=== PATIENT | male | born 1955 | race Caucasian/White ===

== ENCOUNTER 2019-10-10 11:48 | Inpatient (IN) | payer MEDICARE, OTHER ==
[~2019-10-10] VITALS: Ht 182.9 cm; Wt 78.0 kg
[2019-10-10] MEDS ORDERED: SODIUM CHLORIDE 0.9% 1000ML 1,000 ML IV STA (11:53)
[2019-10-10] MEDS ORDERED: PIPERACILLIN/TAZO 2.25 GM 50 ML IV SCH (12:00)
[2019-10-10] MEDS ORDERED: ALBUTEROL/IPRATROPIUM 3 ML NEB NEB ONE (12:00)
[2019-10-10 12:26] LABS: BASOPHILS # (AUTO) 0.1 (0.0-0.1); BASOPHILS % 0.9 % (0.0-1.0); EOSINOPHILS # (AUTO) 0.2 (0.0-0.4); EOSINOPHILS % 3.4 % (0.0-6.0); HEMATOCRIT 38.8 % (38.2-49.6); HEMOGLOBIN 12.6 g/dL (14.0-18.0); LYMPHOCYTES # (AUTO) 1.2 (1.0-3.2); MEAN CORPUSCULAR HEMOGLOBIN 27.2 pg (28-32); MEAN CORPUSCULAR HGB CONC 32.5 g/dL (31-35); MEAN CORPUSCULAR VOLUME 83.8 fL (81-99); MONOCYTES # (AUTO) 0.5 (0.2-0.8); MONOCYTES % 7.4 % (4.4-11.3); NEUTROPHILS # (AUTO) 4.4 (2.1-6.9); PLATELET COUNT 354 x10e3/uL (140-360); RED BLOOD COUNT 4.63 x10e6/uL (4.3-5.7); RED CELL DISTRIBUTION WIDTH 15.8 % (11.7-14.4)
[2019-10-10] MEDS ORDERED: ASPIRIN 81 MG CHEW TAB PO ONE (12:30)
[2019-10-10] MEDS ORDERED: LEVOFLOXACIN 750MG/D5W 150ML 150 ML IV SCH (12:30)
[2019-10-10 12:37] LABS: ABG HCO3 25 mmol/L (23-28); ABG PCO2 31 mmHg (41-51); ABG PH 7.52 (7.31-7.41); ABG PO2 102 mmHg (80-105)
[2019-10-10 12:55] LABS: ALANINE AMINOTRANSFERASE 27 IU/L (0-55); ALBUMIN 3.9 g/dL (3.5-5.0); ALBUMIN/GLOBULIN RATIO 1.2 (0.8-2.0); ALKALINE PHOSPHATASE 92 IU/L (40-150); BLOOD UREA NITROGEN 12 mg/dL (7-26); BUN/CREATININE RATIO 11 (6-25); CALCIUM 9.9 mg/dL (8.4-10.2); CARBON DIOXIDE 27 mmol/L (22-29); CHLORIDE 101 mmol/L (98-107); CREATINE KINASE 80 IU/L (30-200); EST GLOMERULAR FILTRATION RATE > 60 ML/MIN (60-); GLUCOSE 113 mg/dL (74-118); SODIUM 140 mmol/L (136-145)
[2019-10-10 13:01] LABS: B-TYPE NATRIURETIC PEPTIDE2 30.9 pg/mL (0-100)
--- NOTE | 2019-10-10 14:17 | Diagnostic Imaging Report ---
EXAMINATION: CHEST 2 VIEWS INDICATION: SOB. COMPARISON: None FINDINGS: TUBES and LINES: None. LUNGS: Lungs are well inflated. There is a possible nodular opacity overlying the right upper lung, but is obscured by overlying EKG leads. Emphysematous changes of lungs with linear subsegmental atelectasis versus scarring in the lower lung zones. No evidence of lobar consolidation. PLEURA: Possible trace right pleural effusion. Possible pleural thickening along the right lower lateral lung. HEART AND MEDIASTINUM: The cardiomediastinal silhouette is unremarkable. Hiatal hernia. BONES AND SOFT TISSUES: No acute osseous lesion. Soft tissues are unremarkable. UPPER ABDOMEN: No free air under the diaphragm. IMPRESSION: Emphysematous lungs without evidence of acute radiographic abnormality. Possible nodular opacity in the right upper lung, obscured by overlying EKG leads. Recommend repeat chest radiograph upon removal of right upper EKG lead. Possible trace right pleural effusion. Possible right basilar pleural thickening Signed by: Dr. Cheryl Delacruz MD on 10/10/2019 2:13 PM
[2019-10-10] MEDS: MORPHINE SULFATE INJ 4 MG/ML INJ 1ML IV PRN ×2 (16:05→21:34)
--- NOTE | 2019-10-10 19:15 | NUR ---
Pt taken to Radiology then will be taken to 202 after 2V CXR, report called to receiving nurse.
[2019-10-10 19:33] VITALS: BP 115/78
--- NOTE | 2019-10-10 19:49 | Diagnostic Imaging Report ---
EXAMINATION: CHEST 2 VIEWS INDICATION: Short of breath, nodule on prior x-ray, EKG markers removed COMPARISON: chest x-ray 10/10/2019 FINDINGS: TUBES and LINES: None. LUNGS: Hyperinflated lungs with flattened hemidiaphragms. Prominent reticular lung markings throughout the lungs. A 1.2 cm nodular opacity in the mid right upper lung. Prominent central pulmonary vasculature. Subsegmental atelectasis/scarring in the left lung base. PLEURA: No pleural effusion or pneumothorax. HEART AND MEDIASTINUM: The cardiomediastinal silhouette is unremarkable. BONES AND SOFT TISSUES: No acute osseous lesion. Soft tissues are unremarkable. Degenerative changes in the spine. UPPER ABDOMEN: No free air under the diaphragm. IMPRESSION: An indeterminate 1.2 cm nodular opacity in the right upper lung. Recommend nonemergent chest CT for further evaluation. Findings of chronic lung disease. Pulmonary vascular congestion. Signed by: David Moore DO on 10/10/2019 7:45 PM
[2019-10-10] MEDS ORDERED: ROSUVASTATIN CA10 MG PO (20:24)
[2019-10-10] MEDS ORDERED: DULOXETINE HCL30 MG PO (20:24)
[2019-10-10] MEDS ORDERED: ACETAMINOPHEN-1 EAC4 PO (20:24)
[2019-10-10] MEDS ORDERED: GABAPENTIN300 MG PO (20:24)
[2019-10-10] MEDS ORDERED: DOXAZOSIN MESYLA8 MG PO (20:24)
[2019-10-10] MEDS ORDERED: FENOFIBRATE48 MG PO (20:24)
[2019-10-10] MEDS ORDERED: DIAZEPAM10 MG PO (20:24)
[2019-10-10] MEDS ORDERED: DOXAZOSIN MESYLATE 8 MG PO SCH (20:45)
[2019-10-10] MEDS: DOXAZOSIN MESYLATE 2 MG TAB PO SCH (21:00)
[2019-10-10] MEDS: IBUPROFEN 200 MG TAB PO SCH (22:00)
[2019-10-11] VITALS (8 sets, daily range): BP systolic 90–130; BP diastolic 62–81
[2019-10-11] MEDS: MORPHINE SULFATE INJ 4 MG/ML INJ 1ML IV PRN ×4 (03:30→21:32)
[2019-10-11] MEDS: IBUPROFEN 200 MG TAB PO SCH ×2 (05:58→08:20)
[2019-10-11] MEDS ORDERED: OXCARBAZEPINE600 MG PO (08:33)
--- NOTE | 2019-10-11 08:35 | NUR ---
Patient stated he used to take Oxcarbazepine 600mg 3 tabs at home as ordered by his nerve Doctor, Notified Dr Persaud , new order recvd to continue that medication
[2019-10-11] MEDS ORDERED: OXCARBAZEPINE 300 MG TAB PO SCH (09:30)
[2019-10-11] MEDS ORDERED: NON-FORMULARY MEDICATION (Acetaminophen With Codeine (Acetaminophen-Cod #4 Tablet) 1 TAB) PO PRN (11:45)
[2019-10-11] MEDS ORDERED: NON-FORMULARY MEDICATION (Diazepam 10 MG) PO PRN (11:45)
[2019-10-11] MEDS: ACETAMINOPHEN/CODEINE 300MG - 30MG TAB PO PRN (12:10)
[2019-10-11] MEDS: GABAPENTIN 300 MG CAP PO SCH ×2 (15:18→21:31)
[2019-10-11] MEDS: DOXAZOSIN MESYLATE 2 MG TAB PO SCH ×2 (15:18→16:56)
--- NOTE | 2019-10-11 18:16 | Consultation ---
DATE OF CONSULTATION: 10/11/2019 Pulmonary Medicine Consult REASON FOR REFERRAL: Abnormal chest radiography. HISTORY OF PRESENT ILLNESS: Mr. Bertrand is a pleasant 63-year-old gentleman with abnormal chest radiography. The patient is well known to me from outpatient encounters. The patient had a 3.5 roughly cm lung mass, that seem to be increasing in size on serial chest radiography. Furthermore, the patient had two other subcentimeter lung nodules in distant areas, that were not clearly associated with the original process. The patient underwent transthoracic needle biopsy by Radiology in early August. The patient was diagnosed with granulomatous disease, however, the patient had a pneumothorax. Due to the large size pneumothorax, the patient underwent VATS with repair with wedge of the rest of the lesion; these cultures are still being incubated, but once again not suggestive of malignancy. The patient had an MRI brain, that was negative for malignancy and PET-CT did not show any other light up in the body except for this low-level at the main right upper lobe lesion. Plan was to have incubation of cultures for better isolation of whatever actual cause is going on, but in the interim, the patient was having some flushing. The patient with mild fatigue as well. He comes to the emergency room. Chest x-ray demonstrates atelectasis versus pneumonitis, and trace right pleural effusion with no evidence of pneumothorax on right hemithorax. He was admitted and I am consulted. PAST MEDICAL HISTORY: COPD, chronic hypoxemia, on home oxygen, and anxiety. MEDICATIONS: Medication list reviewed per the chart record. ALLERGIES: NO KNOWN DRUG ALLERGIES. SOCIAL HISTORY: No alcohol. No drugs. The patient is a long-time smoker, but recently quit about 1 year ago. FAMILY HISTORY: Noncontributory. REVIEW OF SYSTEMS: GENERAL: No weight changes. OPHTHALMOLOGIC: No double vision. ENT: No mouth ulcers. ENDOCRINE: No thyroid disease. PULMONARY: No asthma. CARDIAC: No heart attack. GI: No diarrhea. : No blood in urine. NEUROLOGIC: No seizures. PSYCHIATRIC: Some active anxiety recently. MUSCULOSKELETAL: Mild arthritis. PHYSICAL EXAMINATION: VITAL SIGNS: Afebrile, vital signs are stable and reviewed per the chart record. GENERAL: In no acute distress, alert, and calm. HEENT: Normocephalic, atraumatic. NECK: Supple. Throat midline. LUNGS: Bilateral air entry, decreased, few rhonchi. CARDIOVASCULAR: S1, S2. No murmurs, rubs, or gallops. ABDOMEN: Soft, nontender. EXTREMITIES: No clubbing, no cyanosis, no edema. INTEGUMENT: No rash. No purpura. LABORATORY DATA: 12 BUN, 1.1 creatinine. 6.4 white count, 39 hematocrit, and 254 platelets. LFTs unremarkable. I believe he had outside HIV test, which was negative. IMPRESSION AND PLAN: 1. Mild exacerbation of chronic obstructive pulmonary disease. 2. Known granulomatous disease, under investigation on the outside. 3. Bronchitis, acute. 4. Chronic hypoxemia, on home oxygen. 5. History of anxiety. Continue current treatment plan. We will follow along closely. I will get outside records. Continue bronchodilator therapy . Thank you very much, Dr. Granados and Dr. Persaud for allowing me a chance to participate in the care of Mr. Bertrand. Please call for questions. MD ASHLEE Amanda/MODL /[id number]
[2019-10-11] MEDS ORDERED: SYMBICORT 16010.2 GM INH (18:19)
[2019-10-11] MEDS ORDERED: PROAIR HFA INH8.5 GM INH (18:19)
[2019-10-11] MEDS ORDERED: SPIRIVA18 MCG INH (18:19)
[2019-10-11] MEDS ORDERED: NABUMETONE750 MG (18:19)
[2019-10-11] MEDS ORDERED: ALBUTEROL SULFATE HFA 8GM INHALATION AEROSOL INH PRN (18:30)
[2019-10-11] MEDS: DULOXETINE HCL 30 MG DELAYED RELEASE PO SCH (18:45)
--- NOTE | 2019-10-11 20:00 | NUR ---
pt received. pt assessed. no ss of distress noted. o2 nc noted. no co pain at time. will cont to follow poc. call horton within reach.
[2019-10-11] MEDS ORDERED: DOXAZOSIN MESYLATE 8 MG PO SCH (21:00)
[2019-10-11] MEDS ORDERED: NON-FORMULARY MEDICATION (Rosuvastatin Calcium 10 MG) PO SCH (21:00)
[2019-10-11] MEDS: CRESTOR 10MG PO SCH (21:31)
[2019-10-11] MEDS: FENOFIBRATE 48 MG TAB PO SCH (21:31)
[2019-10-11] MEDS: AZITHROMYCIN 500MG/NS 250 ML 250 ML IV SCH (22:40)
[2019-10-12] VITALS (7 sets, daily range): BP systolic 100–114; BP diastolic 64–68
[2019-10-12] MEDS: DIAZEPAM 5 MG TAB PO PRN ×2 (00:47→23:42)
--- NOTE | 2019-10-12 04:00 | NUR ---
pt resting. no ss of distress noted. call horton within reach.
[2019-10-12] MEDS: OXCARBAZEPINE 300 MG TAB PO SCH (06:12)
[2019-10-12] MEDS: ACETAMINOPHEN/CODEINE 300MG - 30MG TAB PO PRN (06:12)
--- NOTE | 2019-10-12 07:10 | NUR ---
pt alert resp even and unlabored pt able to make needs known, no c/o pain no distress noted, call light in reach.
[2019-10-12] MEDS: BUDESONIDE/FORMOTEROL 160/4.5MCG INHALER INH SCH (07:59)
[2019-10-12] MEDS: TIOTROPIUM 18 MCG INH POWDER INH SCH (07:59)
[2019-10-12] MEDS: DULOXETINE HCL 30 MG DELAYED RELEASE PO SCH (09:17)
[2019-10-12] MEDS: GABAPENTIN 300 MG CAP PO SCH ×2 (09:17→21:16)
[2019-10-12] MEDS: DOXAZOSIN MESYLATE 2 MG TAB PO SCH ×2 (09:17→16:40)
--- NOTE | 2019-10-12 11:52 | History and Physical ---
Mr. Crane is a pleasant 63-year-old man with known lung disease, who presented to the emergency room on the with a complaint of shortness of breath. HISTORY OF PRESENT ILLNESS: The patient was recently discharged from [facility] after a complex hospitalization and felt that he was doing okay, but got suddenly short of breath over the weekend. PAST MEDICAL HISTORY: Significant for a hospitalization at [facility] apparently in August 2019, with a needle biopsy of a pulmonary mass in his right lung, that resulting tension pneumothorax, chest tube placement, and complex management. He has had previous pneumonia vaccine and flu vaccine. No previous hospitalizations before noted above. PERSONAL AND SOCIAL HISTORY: The patient smoked until March 2019. 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 HOME MEDICATIONS: Please see the chart. PHYSICAL EXAMINATION: GENERAL: At this time, shows a pleasant white male, looks older than his stated age. Normotensive. VITAL SIGNS: Afebrile, blood pressure 125/75, and pulse 90 and regular. HEAD, EYES, EARS, NOSE, AND THROAT: Unremarkable except for the nasal cannula oxygen. THORAX: Heart sounds S1 and S2 are equal without significant murmur. LUNGS: Have distant breath sounds. No distinct wheezing. ABDOMEN: Protuberant. Normal bowel sounds. EXTREMITIES: No cyanosis, clubbing, or edema. EKG shows sinus rhythm, normal EKG. INITIAL LABORATORY STUDIES: Show white count of 6.3, hemoglobin 12.6. BUN 12, creatinine 1.1, glucose 113. Initial chest x-ray shows emphysematous changes and flattening of the diaphragms. ASSESSMENT: 1. Exacerbation of chronic obstructive pulmonary disease. 2. Home dependent oxygen. 3. Trigeminal neuralgia with chronic pain in his right face over the past 10 years. PLAN: We will continue his neurological medications, antibiotics, and bronchodilators. We will consult with Dr. Etienne. We will review old records when available. MD MAGDALENA Williamson/TI /[id number]
--- NOTE | 2019-10-12 19:24 | NUR ---
report given to oncoming nurse, pt stable at this time.
--- NOTE | 2019-10-12 20:56 | NUR ---
Pulmonary Medicine DATE 10/12/2019 SUBJECTIVE: Remains on oxygen No excess dyspnea today Patient eating some d/w patient updated results of biopsy/cultures from his lung procedures AFB cultures negative x 3 weeks so far with his symptoms yet no alternative therapy, will begin mycobacterial therapy. REVIEW OF SYSTEMS: no bleeding, no rash PHYSICAL EXAMINATION: VITAL SIGNS: vital signs are stable and reviewed per the chart record. GENERAL: no acute distress, alert, and calm. HEENT: Normocephalic, atraumatic. NECK: Supple. Throat midline. LUNGS: Bilateral air entry, decreased, few rhonchi. CARDIOVASCULAR: S1, S2. No murmurs, rubs, or gallops. ABDOMEN: Soft, nontender. EXTREMITIES: No clubbing, no cyanosis, no edema. INTEGUMENT: No rash. No purpura. LABORATORY DATA: no new updates IMPRESSION AND PLAN: 1. Mild exacerbation of chronic obstructive pulmonary disease. 2. Known granulomatous disease, under investigation on the outside. Rx as culture negative mycobacterial disease 3. Bronchitis, acute. 4. Chronic hypoxemia, on home oxygen. 5. History of anxiety. Continue bronchodilator therapy continue oxygen continue abx at discharge patient can go on RIPE therapy while awaiting rest of microbiologic findings Thank you very much, Dr. Granados and Dr. Persaud for allowing me a chance to participate in the care of Mr. Bertrand. Please call for questions.
--- NOTE | 2019-10-12 21:05 | NUR ---
patient in bed, awake alert oriented. complained of pain to right shoulder. needs pain med PRN. will give meds scheduled and PRN pain med. will continue to monitor.
[2019-10-12] MEDS ORDERED: ETHAMBUTOL HCL400 MG PO (21:15)
[2019-10-12] MEDS ORDERED: RIFAMPIN300 MG PO (21:15)
[2019-10-12] MEDS ORDERED: ISONIAZID300 MG PO (21:15)
[2019-10-12] MEDS ORDERED: PYRAZINAMIDE500 MG PO (21:15)
[2019-10-12] MEDS ORDERED: VITAMIN B-650 MG PO (21:15)
[2019-10-12] MEDS: AZITHROMYCIN 500MG/NS 250 ML 250 ML IV SCH (21:16)
[2019-10-12] MEDS: FENOFIBRATE 48 MG TAB PO SCH (21:16)
[2019-10-12] MEDS: CRESTOR 10MG PO SCH (21:16)
[2019-10-12] MEDS: MORPHINE SULFATE INJ 4 MG/ML INJ 1ML IV PRN (21:16)
--- NOTE | 2019-10-12 23:42 | NUR ---
patient requested Valium PRN, vitals checked, bp at this time is 129/72. will continue to monitor.
[2019-10-13 00:15] VITALS: BP 129/72
[2019-10-13 05:10] LABS: BASOPHILS % 0.6 % (0.0-1.0); EOSINOPHILS # (AUTO) 0.7 (0.0-0.4); EOSINOPHILS % 10.2 % (0.0-6.0); HEMATOCRIT 34.8 % (38.2-49.6); HEMOGLOBIN 11.4 g/dL (14.0-18.0); LYMPHOCYTES % 28.8 % (18.0-39.1); MEAN CORPUSCULAR HEMOGLOBIN 27.5 pg (28-32); MEAN CORPUSCULAR HGB CONC 32.8 g/dL (31-35); MEAN CORPUSCULAR VOLUME 83.9 fL (81-99); MONOCYTES # (AUTO) 0.6 (0.2-0.8); MONOCYTES % 8.7 % (4.4-11.3); NEUTROPHILS # (AUTO) 3.5 (2.1-6.9); NEUTROPHILS % 51.4 % (38.7-80.0); PLATELET COUNT 300 x10e3/uL (140-360); RED BLOOD COUNT 4.15 x10e6/uL (4.3-5.7); RED CELL DISTRIBUTION WIDTH 15.6 % (11.7-14.4)
[2019-10-13] MEDS: ACETAMINOPHEN/CODEINE 300MG - 30MG TAB PO PRN ×2 (05:25→10:14)
[2019-10-13] MEDS: OXCARBAZEPINE 300 MG TAB PO SCH (05:25)
[2019-10-13 05:38] LABS: ANION GAP 11.5 mmol/L (8-16); BLOOD UREA NITROGEN 12 mg/dL (7-26); BUN/CREATININE RATIO 14 (6-25); CALCIUM 9.1 mg/dL (8.4-10.2); CARBON DIOXIDE 27 mmol/L (22-29); CHLORIDE 103 mmol/L (98-107); CHOL/HDL RATIO 6.1 (3.9-4.7); CHOLESTEROL 251 MD/DL (0-199); CREATININE, SERUM 0.87 mg/dL (0.72-1.25); EST GLOMERULAR FILTRATION RATE > 60 ML/MIN (60-); GLUCOSE 97 mg/dL (74-118); HDL CHOLESTEROL 41 MG/DL (40-60); LDL CHOLESTEROL 183 MG/DL (60-130); POTASSIUM 3.5 mmol/L (3.5-5.1); SODIUM 138 mmol/L (136-145); TRIGLYCERIDES 137 MG/DL (0-149)
[2019-10-13 06:33] VITALS: BP 105/63
[2019-10-13] MEDS: BUDESONIDE/FORMOTEROL 160/4.5MCG INHALER INH SCH (06:57)
[2019-10-13] MEDS: TIOTROPIUM 18 MCG INH POWDER INH SCH (06:57)
--- NOTE | 2019-10-13 07:09 | NUR ---
bed side reports given to upcoming nurse. patient stable.
[2019-10-13 07:42] VITALS: BP 105/63
[2019-10-13 07:47] VITALS: BP 119/62
[2019-10-13] MEDS: DOXAZOSIN MESYLATE 2 MG TAB PO SCH (09:03)
[2019-10-13] MEDS: GABAPENTIN 300 MG CAP PO SCH (09:04)
[2019-10-13] MEDS: DULOXETINE HCL 30 MG DELAYED RELEASE PO SCH (09:04)
[2019-10-13 10:40] VITALS: BP 119/62
--- NOTE | 2019-10-13 11:32 | NUR ---
Spoke to Gladis Bright, robotic machine operator, regarding TB intake from on chart from Dr. Etienne. Informed her of discharge for today. She will come up to pickling tank operator form.
[2019-10-13 11:55] VITALS: BP 100/66
--- NOTE | 2019-10-13 13:00 | NUR ---
Pulmonary Medicine DATE 10/13/2019 SUBJECTIVE: Remains on oxygen Stable breathing sitting up, mostly independent REVIEW OF SYSTEMS: no bleeding, no rash PHYSICAL EXAMINATION: VITAL SIGNS: vital signs reviewed per the chart record. GENERAL: no acute distress, alert, and calm. HEENT: Normocephalic, atraumatic. NECK: Supple. Throat midline. LUNGS: Bilateral air entry, decreased, few rhonchi. CARDIOVASCULAR: S1, S2. No murmurs, rubs, or gallops. ABDOMEN: Soft, nontender. EXTREMITIES: No clubbing, no cyanosis, no edema. INTEGUMENT: No rash. No purpura. LABORATORY DATA: k low 3.5. cr 0.87. 7 wbc, hct 35 IMPRESSION AND PLAN: 1. Mild exacerbation of chronic obstructive pulmonary disease. 2. Known granulomatous disease, under investigation on the outside. Rx as culture negative mycobacterial disease 3. Bronchitis, acute. 4. Chronic hypoxemia, on home oxygen. 5. History of anxiety. Start RIPE therapy empirically. [facility] paperwork filled. Patient can go home today from a pulmonary point of view-- patient follows closely and not difficult to contact. after discharge patient can await rest of microbiologic findings Continue bronchodilator therapy continue oxygen continue abx Thank you very much, Dr. Granados and Dr. Persaud for allowing me a chance to participate in the care of Mr. Craen. Please call for questions.
--- NOTE | 2019-10-13 15:34 | NUR ---
Patient was given instructions for follow up by MD at bedside. Packet given to Infection control nurse who communicated with the [place] dept and faxed everything to them. patient left after d/c instuctions given to patient. Scripts were left with the packet , and just now faxed to [facility] [place] [facility]. @ [phone]. Patient called and informed of the scripts faxed to [facility]
--- NOTE | 2019-10-14 04:41 | Discharge Summary ---
Mr. Crane is a pleasant 63-year-old man with known lung disease, who presented to the emergency room on the with complaint of worsening shortness of breath. HOSPITAL COURSE: The patient was treated with broad-spectrum antibiotics and bronchodilators and seen in consultation with dr. Etienne, who has known him from previous hospitalizations. He uses home oxygen became gradually better. There was difficulty finding previous hospital records, as his name was misspelled. Once corrected, we were able to find that biopsy done at [facility] in August showed only granuloma. No evidence of malignancy, at which time he had pneumothorax and a chest tube. Today, the patient is afebrile, breathing well. His lab today shows white count of 6.8 and hemoglobin of 11.4. His echocardiogram additionally showed normal LV function with no valvular abnormality and no pericardial effusion. He is discharged today to begin a regimen as an outpatient of ethambutol 1200 mg daily, isoniazid 300 mg daily, pyrazinamide 2000 mg daily, pyridoxine 25 mg daily, and rifampin 600 mg daily. He will follow up with Dr. Etienne in his office for further management. DISCHARGE DIAGNOSES: 1. Exacerbation of chronic obstructive pulmonary disease. 2. Granuloma on biopsy. 3. No evidence of malignancy. MD MAGDALENA Williamson/TI /[id number] cc: DO Alvin Lui MD
--- OUTSIDE RECORDS SUMMARY | 2019-10-15 12:22 | XMS REPORT ---
[facility] Address Unknown Phone Unavailable Care Team Providers Care Territory Service Representative Name Role Phone Snow OWENS Unavailable Unavailable Payers Payer Name Policy Type Policy Number Effective Date Expiration Date Problems This patient has no known problems. Allergies, Adverse Reactions, Alerts Allergy Name Allergy Type Status Severity Reaction(s) Onset Date Inactive Date Treating Clinician Comments No Known Allergies DA Active U 2019-09-08 00:00:00 Medications This patient has no known medications. Encounters Start Date/Time End Date/Time Encounter Type Admission Type Attending Clinicians Care Facility Care Department Encounter ID 2019-08-03 11:20:53 Outpatient [facility]500 2019-08-25 10:55:00 2019-08-25 10:55:00 Outpatient [facility] 7501 Results Test Description Test Time Test Comments Text Results Atomic Results Result Comments CHEST 2 VIEWS 2019-10-10 19:33:00 [facility] [address] [address] Patient Name: ALIS CHUN MR #: [id number] : 1955 Age/Sex: 63/M Req #: [id number] Adm Physician: JOANN OWENS MD Ordered by: SAMMY SMITH MD Report #: [id number] Location: MED/SURG2 Room/Bed: [facility] Procedure: [id number] DX/CHEST 2 VIEWS Exam Date: 10/10/19 Exam Time: 1914 REPORT STATUS: Signed EXAMINATION: CHEST 2 VIEWS INDICATION: Short of breath, nodule on prior x-ray, EKG markers removed COMPARISON: chest x-ray 10/10/2019 FINDINGS: TUBES and LINES: None. LUNGS: Hyperinflated lungs with flattened hemidiaphragms. Prominent reticular lung markings throughout the lungs. A 1.2 cm nodular opacity in the mid right upper lung. Prominent central pulmonary vasculature. Subsegmental atelectasis/scarring in the left lung base. PLEURA: No pleural effusion or pneumothorax. HEART AND MEDIASTINUM: The cardiomediastinal silhouette is unremarkable. BONES AND SOFT TISSUES: No acute osseous lesion. Soft tissues are unremarkable. Degenerative changes in the spine. UPPER ABDOMEN: No free air under the diaphragm. IMPRESSION: An indeterminate 1.2 cm nodular opacity in the right upper lung. Recommend nonemergent chest CT for further evaluation. Findings of chronic lung disease. Pulmonary vascular congestion. Signed by: David Suggs DO on 10/10/20 7:45 PM Dictated By: DAVID SUGGS DO 44 Transcribed By: VANNESSA on 10/10/191944 COPY TO: SAMMY SMITH MD CHEST 2 VIEWS 2019-10-10 14:09:00 [address] [address] Patient Name: ALIS CHUN MR #: [id number] : 1955 Age/Sex: 63/M Req #: [id number] Adm Physician: Ordered by: ZACARIAS LAZO DO Report #: [id number] Location: ER Room/Bed: Procedure: [id number] DX/CHEST 2 VIEWS Exam Date: 10/10/19 Exam Time: 1338 REPORT STATUS: Signed EXAMINATION: CHEST 2 VIEWS INDICATION: SOB. COMPARISON: None FINDINGS: TUBES and LINES: None. LUNGS: Lungs are well inflated. There is a possible nodular opacity overlying the right upper lung, but is obscured by overlying EKG leads. Emphysematous changes of lungs with linear subsegmental atelectasis versus scarring in the lower lung zones. No evidence of lobar consolidation. PLEURA: Possible trace right pleural effusion. Possible pleural thickening along the right lower lateral lung. HEART AND MEDIASTINUM: The cardiomediastinal silhouette is unremarkable. Hiatal hernia. BONES AND SOFT TISSUES: No acute osseous lesion. Soft tissues are unremarkable. UPPER ABDOMEN: No free air under the diaphragm. IMPRESSION: Emphysematous lungs without evidence of acute radiographic abnormality. Possible nodular opacity in the right upper lung, obscured by overlying EKG leads. Recommend repeat chest radiograph upon removal of right upper EKG lead. Possible trace right pleural effusion. Possible right basilar pleural thickening Signed by: Dr. Olu Anton MD on 10/10/2019 2:13 PM Dictated By: OLU ANTON MD 1413 Transcribed By: VANNESSA on 10/10/19 1413 COPY TO: ZACARIAS LAZO DO LUNG,WEDGE BIOPSY 2019-09-27 18:22:00 RUN DATE: 09/27/19 [facility] PAGE 1 RUN TIME: 1822 Specimen Inquiry RUN USER: INTERFACE PATIENT: ALIS PITT LOC: BONNY #: [id number] AGE/SX: 63/M ROOM: [facility] RE09/10/19REG DR: Buddy Mcdonald MD : 55 BED: A DIS: 09/22/19 STATUS: DIS IN TLOC: SPEC #: [id number] RECD: 09/20/19 STATUS: ANJUM SANIYA #: [id number] LULA: 09/17/19- SUBM DR: Roxane Hu MD ENTERED: 09/20/19 SP TYPE: BXLUNGWED JESSICA DR: Long Gallegos MD, Remington Pek HanleyRoxane Puentes MD, George M MD Qureshi,Tennille Black MD, MD,Jaspal Cruz [facility]: GROSS COPIES TO: Long Gallegos MD [address] [place] [address] Kleber Paulino Hanley DO [address] [place] [address] Roxane Hu MD [address], [place] [id number] Alvin Etienne MD [address] [facility] [address] [place] [phone] Cain Cobian MD [address] [facility] [address] [place], [place] [id number] Tennille Escobar MD [address] [facility] [place] [address] Jaspal Granados DO [address] [id number] CONTINUED ON NEXT PAGE RUN DATE: 09/27/19 [facility] PAGE 2 RUN TIME: 1821 Specimen Inquiry RUN USER: INTERFACE --------SPEC #: [id number] PATIENT: SWEETIEALIS LOZANO #[id number] (Continued) MARKERS: INTRADEPARTMENTAL CONSULT PROCEDURES: SEE (09/27/19-0177) TISSUES: 1. RIGHT UPPER LOBE OF LUNG, NOS - WEDGE (PERFORATION MARKED IN BLUE ) 2. RIGHT UPPER LOBE OF LUNG, NOS - WEDGE (SILK STITCH AT GRANULATION) CLINICAL HISTORY COLLECTION DATE: 09/17/19 RIGHT LUNG MASS COMMENT Necrotizing granuloma formation was seen in the recent biopsy ([id number]). However, no areas of necrotizing granuloma formation are seen in the current biopsy. Clinical correlation is recommended. Intradepartmental consultation: RRB FINAL DIAGNOSIS Right upper lobe of lung, wedge biopsy #1: SUBPLEURAL FIBROUS AND BLEB FORMATION, FOREIGN BODY GIANT CELL REACTION TO CALCIFICATIONS AND FOCAL HEMORRHAGE CHRONIC PLEURITIS NO NECROTIZING GRANULOMAS SEEN NEGATIVE FOR MALIGNANCY Right upper lobe of lung, wedge biopsy #2: SUBPLEURAL SCAR FORMATION WITH PATCHY CHRONIC INFLAMMATION, BLEB FORMATION, CALCIFICATIONS, AND AREAS OF HEMORRHAGE CHRONIC PLEURITIS NO NECROTIZING GRANULOMAS SEEN NEGATIVE FOR MALIGNANCY (see comment) DM/ D [phone] MACROSCOPIC Specimen (1) is received in formalin labeled with the patient's name, and identified as "right upper lobe wedge". It consists of a wedge biopsy tissue compatible with lung measuring 6.0 by up to 1.8 by up to 1.7 cm. One edge is closed with metal machelle and one end is not lined by pleura and has a roughened dark brown appearance. This edge is inked black. After removing the CONTINUED ON NEXT PAGE RUN DATE: 09/27/19 [facility] PAGE 3 RUN TIME: 1821 Specimen Inquiry RUN USER: INTERFACE SPEC #: [id number] PATIENT: ALIS PITT #[id number] (Continued) MACROSCOPIC (Continued) machelle the margin is inked blue. The pleural surface is dark xie and smooth to slightly wrinkled. No discrete areas of blue discoloration are seen on the plural surface. The cut surface of the tissue is red-brown with decreased aeriation. No discrete nodules or masses are identified. Section Code: 1A-1C- multiple phone representative sections through tissue, 1D-1E- remainder of tissue. Specimen (2) is received in formalin, labeled with the patient's name and identified as "left upper lobe wedge". It consists of a wedge biopsy xie-lowe glistening tissue compatible with lung measuring 6.0 by up to 1.3 by up to 1.2 cm. A black suture passes through the tissue slightly closer to one end. The tissue is not otherwise oriented. The margin is closed with metal machelle. After removing the machelle the margin is inked green. The plural surface of the tissue in the area of the suture is slightly roughened. Sectioning through this area shows slight xie-lowe discoloration beneath the plural surface. No other focal lesions are seen. Section Code: 2A-2D- tissue entirely submitted. GROSS PERFORMED AT [facility] [address] [place] [id number] (p)[phone] MT CROSCOPIC All of the stains, including any controls performed, stain appropriately. MICROSCOPIC PERFORMED AT [facility] [address] [place] [address] (p)[phone] PERFORMING SITE Diagnosis performed at: [facility], [place] [address] [place] [id number] CONTINUED ON NEXT PAGE RUN DATE: 09/27/19 [facility] PAGE 4 RUN TIME: 1821 Specimen Inquiry RUN USER: INTERFACE SPEC #: [id number] PATIENT: ALIS PITT #[id number] (Continued) -- Signed SIGNATURE ON FILE Nicole Biswas MD 09/27/191821 END OF REPORT CBC W/O DIFF 2019-09-22 07:55:00 WHITE BLOOD CELL (test code=WBC) 8.9 K/mm3 4.5-12.5 RED BLOOD CELL (test code=RBC) 3.89 mill/mm3 4.0-5.8 HEMOGLOBIN (test code=HGB) 10.6 gram/dL 13.0-17.5 HEMATOCRIT (test code=HCT) 32.2 % 42.0-52.0 MEAN CELL VOLUME (test code=MCV) 82.8 fL 80-98 MEAN CELL HGB (test code=MCH) 27.2 picogram 27.0-33.0 MEAN CELL HGB CONCETRATION (test code=MCHC) 32.9 gram/dL 33.0-36.0 RED CELL DISTRIBUTION WIDTH (test code=RDW) 14.5 % 11.6-16.2 PLATELET COUNT (test code=PLT) 491 K/mm3 150-450 MEAN PLATELET VOLUME (test code=MPV) 10.7 fL 6.7-11.0 - XR CHEST 1 [id number] 07:52:00 FAX: Buddy Reilly MD [place]: B St: [facility] FAX: Alvin Troncoso MD [phone] FAX: Jaspal Arambula [phone] FAX: Kiel Daugherty NP FAX: Ubaldo Fish [phone] Name: ALIS PITT [facility] : 1955 Age/S: 63/M [address] [facility] Unit #: [id number] Loc: VJuanita[address] [address] Phys: Kiel Daugherty NP Acct: [id number] Dis Date: Status: ADM IN PHONE #: [phone] Exam Date: 09/22/2019 0743 FAX #: [phone] Reason: s/p VATS, chest tube removed 09/20/19 EXAMS: CPT CODE: [id number] XR CHEST 1 V 07239 CLINICAL HISTORY: Pneumothorax, s/p VATS, chest tube removed 09/20/19 TECHNIQUE: AP chest x-ray COMPARISON: Previous day. IMPRESSION: Improved small right apical pneumothorax. Mild bibasilar atelectasis. No pleural effusion. No mediastinal shift. Normal heart size. Right neck/chest soft tissue emphysema. LOCATION: LP at 0752 Reported and signed by: Tori John D.O. CC: Buddy Mcdonald MD; Alvin Etienne MD; Jaspal Granados; Kiel Daugherty NP; Ubaldo Lion MD Technologist: RT MATTHEW(Shasha) Trnscrd Date/Time/By: 09/22/2019 (0752) : By: [email or web address] Orig Print D/T: S: 09/22/2019 (0808) PAGE 1 Signed Report [id number] 07:36:00* Test Item Value Reference Range Comments MAGNESIUM (test code=MAG) 2.1 mg/dL 1.8-2.4 BASIC METABOLIC [id number] 07:24:00* Test Item Value Reference Range Comments SODIUM (test code=NA) 145 mmol/L 136-145 POTASSIUM (test code=K) 3.6 mmol/L 3.5-5.1 CHLORIDE (test code=CL) 111.0 mmol/L 98-107 CARBON DIOXIDE (test code=CO2) 28.0 mmol/L 21-32 ANION GAP (test code=GAP) 9.6 10-20 GLUCOSE (test code=GLU) 107 mg/dL 74-106 BLOOD UREA NITROGEN (test code=BUN) 12 mg/dL 7-18 GLOMERULAR FILTRATION RATE (test code=GFR) > 60 mL/min >=60 Estimated GFR by using Modified MDRD formula.Chronic kidney disease is defined as either kidney damageor GFR <60 mL/min/1.73 m2 for >3 months. CREATININE (test code=CREAT) 0.90 mg/dL 0.7-1.3 BUN/CREATININE RATIO (test code=BUN/CREA) 13.9 10-20 CALCIUM (test code=CA) 8.9 mg/dL 8.5-10.1 BASIC METABOLIC [id number] 07:18:00* Test Item Value Reference Range Comments SODIUM (test code=NA) 145 mmol/L 136-145 POTASSIUM (test code=K) 3.6 mmol/L 3.5-5.1 CHLORIDE (test code=CL) 111.0 mmol/L 98-107 CARBON DIOXIDE (test code=CO2) mmol/L 21-32 ANION GAP (test code=GAP) 10-20 GLUCOSE (test code=GLU) mg/dL 74-106 BLOOD UREA NITROGEN (test code=BUN) mg/dL 7-18 GLOMERULAR FILTRATION RATE (test code=GFR) mL/min >=60 CREATININE (test code=CREAT) mg/dL 0.7-1.3 BUN/CREATININE RATIO (test code=BUN/CREA) 10-20 CALCIUM (test code=CA) mg/dL 8.5-10.1 QUANTIFERON [id number] 05:09:00* Test Item Value Reference Range Comments QUANTIFERON TEST (test code=QFTT) Indeterminate Negative Mitogen (positive control) gave low response.This may indicate anergy or immune suppression. Earlydraws and extended transit time may also result in lowpositive control and indeterminate results.The specimen received for QuantiFERON testing was incubatedby the ordering institution. Specific procedures outlinedin our Directory of Services and in the package insert forthe QuantiFERON Gold (In Tube) test must be followed toenable for proper stimulation of cells for the productionof interferon gamma.Performed At: [facility] [id number] Mcclure MD Ph:[phone] - XR CHEST 1 [id number] 10:03:00 FAX: Buddy Reilly MD [place]: B St: ADM FAX: Alvin Troncoso MD [phone] FAX: Jaspal Arambula [phone] FAX: Kiel Daugherty [employer]OTE ENCODING CENTER MANAGER FAX: Gallito GoodrichUbaldo gresham Saige [phone] Name: ALIS PITT [facility] : 1955 Age/S: 63/M [address] [facility] Unit #: [id number] Loc: V.[address] [place] [address] Phys: Kiel Daugherty NP Acct: [id number] Dis Date: Status: ADM IN PHONE #: [phone] Exam Date: 09/21/2019 0933 FAX #: [phone] Reason: s/p VATS 09/17/19, chest tube removed 09/20/19 EXAMS: CPT CODE: [id number] XR CHEST 1 V 54970 REASON FOR EXAM: s/p VATS 09/17/19, chest tube removed 09/20/19 Exam Order Date: 09/21/2019 9:15 AM Ordering M.Dorita: Kiel Daugherty NP PROCEDURE: - XR CHEST 1 V COMPARISON: Frontal chest x-ray the previous morning FINDINGS: There is a new small right apical pneumothorax (less than 10% of lung volume) following removal of the right-sided thoracostomy tube. Lungs are clear. Bibasilar subsegmental atelectasis is unchanged from the previous exam. Cardiac mediastinal silhouette and osseous structures are within normal limits. Subcutaneous emphysema in the right chest wall and right neck appear grossly similar. IMPRESSION: Small right apical pneumothorax following removal of right-sided thoracostomy tube. Remaining findings are unchanged. Findings were communicated to Fay LI by telephone at 10:00 AM September 21, 2019. Location: [facility] at 1003 Reported and signed by: Venancio Sawyer MD PAGE 1 Signed Report (CONTINUED) FAX: Buddy Reilly MD [place]: B St: ADM FAX: Alvin Troncoso MD [phone] FAX: Jaspal Arambula [phone] FAX: Kiel Daugherty NP FAX: Ubaldo Fish [phone] Name: ALIS PITT [facility] : 1955 Age/S: 63/M [address] Unit #: [id number] Loc: [place] [address] Phys: Kiel Daugherty NP Acct: [id number] Dis Date: Status: ADM IN PHONE #: [phone] Exam Date: 09/21/2019 0933 FAX #: [phone] Reason: s/p VATS 09/17/19, chest tube removed 09/20/19 EXAMS: CPT CODE: [id number] XR CHEST 1 V 56195 <Continued> CC: Buddy Mcdonald MD; Alvin Etienne MD; Jaspal Granados; Kiel Daugherty NP; Ubaldo Lion MD Technologist: Kayla Wagner) Trnscrd Date/Time/By: 09/21/2019 (1003) : By: [email or web address] [facility] Print D/T: S: 09/21/2019 (1006) PAGE 2 Signed Report CBC W/O [id number] 06:13:00* Test Item Value Reference Range Comments WHITE BLOOD CELL (test code=WBC) 10.5 K/mm3 4.5-12.5 RED BLOOD CELL (test code=RBC) 3.93 mill/mm3 4.0-5.8 HEMOGLOBIN (test code=HGB) 10.9 gram/dL 13.0-17.5 HEMATOCRIT (test code=HCT) 32.7 % 42.0-52.0 MEAN CELL VOLUME (test code=MCV) 83.2 fL 80-98 MEAN CELL HGB (test code=MCH) 27.7 picogram 27.0-33.0 MEAN CELL HGB CONCETRATION (test code=MCHC) 33.3 gram/dL 33.0-36.0 RED CELL DISTRIBUTION WIDTH (test code=RDW) 14.4 % 11.6-16.2 PLATELET COUNT (test code=PLT) 443 K/mm3 150-450 MEAN PLATELET VOLUME (test code=MPV) 10.6 fL 6.7-11.0 BASIC METABOLIC [id number] 06:09:00* Test Item Value Reference Range Comments SODIUM (test code=NA) 145 mmol/L 136-145 POTASSIUM (test code=K) 3.6 mmol/L 3.5-5.1 CHLORIDE (test code=CL) 108.0 mmol/L 98-107 CARBON DIOXIDE (test code=CO2) 28.0 mmol/L 21-32 ANION GAP (test code=GAP) 12.6 10-20 GLUCOSE (test code=GLU) 107 mg/dL 74-106 BLOOD UREA NITROGEN (test code=BUN) 14 mg/dL 7-18 GLOMERULAR FILTRATION RATE (test code=GFR) > 60 mL/min >=60 Estimated GFR by using Modified MDRD formula.Chronic kidney disease is defined as either kidney damageor GFR <60 mL/min/1.73 m2 for >3 months. CREATININE (test code=CREAT) 0.70 mg/dL 0.7-1.3 BUN/CREATININE RATIO (test code=BUN/CREA) 18.7 10-20 CALCIUM (test code=CA) 8.7 mg/dL 8.5-10.1 BASIC METABOLIC [id number] 06:08:00* Test Item Value Reference Range Comments SODIUM (test code=NA) 145 mmol/L 136-145 POTASSIUM (test code=K) 3.6 mmol/L 3.5-5.1 CHLORIDE (test code=CL) 108.0 mmol/L 98-107 CARBON DIOXIDE (test code=CO2) mmol/L 21-32 ANION GAP (test code=GAP) 10-20 GLUCOSE (test code=GLU) mg/dL 74-106 BLOOD UREA NITROGEN (test code=BUN) mg/dL 7-18 GLOMERULAR FILTRATION RATE (test code=GFR) mL/min >=60 CREATININE (test code=CREAT) mg/dL 0.7-1.3 BUN/CREATININE RATIO (test code=BUN/CREA) 10-20 CALCIUM (test code=CA) 8.7 mg/dL 8.5-10.1 [id number] 06:08:00* Test Item Value Reference Range Comments MAGNESIUM (test code=MAG) 2.2 mg/dL 1.8-2.4 BASIC METABOLIC [id number] 08:02:00* Test Item Value Reference Range Comments SODIUM (test code=NA) 143 mmol/L 136-145 POTASSIUM (test code=K) 3.9 mmol/L 3.5-5.1 CHLORIDE (test code=CL) 107.0 mmol/L 98-107 CARBON DIOXIDE (test code=CO2) 25.0 mmol/L 21-32 ANION GAP (test code=GAP) 14.9 10-20 GLUCOSE (test code=GLU) 78 mg/dL 74-106 BLOOD UREA NITROGEN (test code=BUN) 18 mg/dL 7-18 GLOMERULAR FILTRATION RATE (test code=GFR) > 60 mL/min >=60 Estimated GFR by using Modified MDRD formula.Chronic kidney disease is defined as either kidney damageor GFR <60 mL/min/1.73 m2 for >3 months. CREATININE (test code=CREAT) 0.90 mg/dL 0.7-1.3 BUN/CREATININE RATIO (test code=BUN/CREA) 19.7 10-20 CALCIUM (test code=CA) 9.0 mg/dL 8.5-10.1 CBC W/O [id number] 08:00:00* Test Item Value Reference Range Comments WHITE BLOOD CELL (test code=WBC) 12.2 K/mm3 4.5-12.5 RED BLOOD CELL (test code=RBC) 3.99 mill/mm3 4.0-5.8 HEMOGLOBIN (test code=HGB) 11.1 gram/dL 13.0-17.5 HEMATOCRIT (test code=HCT) 33.6 % 42.0-52.0 MEAN CELL VOLUME (test code=MCV) 84.2 fL 80-98 MEAN CELL HGB (test code=MCH) 27.8 picogram 27.0-33.0 MEAN CELL HGB CONCETRATION (test code=MCHC) 33.0 gram/dL 33.0-36.0 RED CELL DISTRIBUTION WIDTH (test code=RDW) 14.7 % 11.6-16.2 PLATELET COUNT (test code=PLT) 423 K/mm3 150-450 RESULT VERIFIED BY REPEAT ANALYSIS MEAN PLATELET VOLUME (test code=MPV) 11.1 fL 6.7-11.0 [id number] 07:59:00* Test Item Value Reference Range Comments MAGNESIUM (test code=MAG) 2.1 mg/dL 1.8-2.4 BASIC METABOLIC [id number] 07:58:00* Test Item Value Reference Range Comments SODIUM (test code=NA) 143 mmol/L 136-145 POTASSIUM (test code=K) 3.9 mmol/L 3.5-5.1 CHLORIDE (test code=CL) 107.0 mmol/L 98-107 CARBON DIOXIDE (test code=CO2) mmol/L 21-32 ANION GAP (test code=GAP) 10-20 GLUCOSE (test code=GLU) mg/dL 74-106 BLOOD UREA NITROGEN (test code=BUN) mg/dL 7-18 GLOMERULAR FILTRATION RATE (test code=GFR) mL/min >=60 CREATININE (test code=CREAT) mg/dL 0.7-1.3 BUN/CREATININE RATIO (test code=BUN/CREA) 10-20 CALCIUM (test code=CA) mg/dL 8.5-10.1 - XR CHEST 1 [id number] 06:15:00 FAX: Rolf Oviedo [place]: B St: ADM FAX: Buddy Reilly MD FAX: Alvin Troncoso MD [phone] FAX: Jaspal Arambula [phone] FAX: Ubaldo Fish [phone] Name: ALIS PITT [facility] : 1955 Age/S: 63/M [address] Unit #: [id number] Loc: V.S20 [place] [address] Phys: Rolf Oviedo Acct: [id number] Dis Date: Status: ADM IN PHONE #: [phone] Exam Date: 09/20/2019520 FAX #: [phone] Reason: chest tube in place EXAMS: CPT CODE: [id number] XR CHEST 1 V 40400 CLINICAL HISTORY: Pneumothorax with chest tube in place TECHNIQUE: AP chest x-ray COMPARISON: Previous day. IMPRESSION: Resolved small right apical pneumothorax. Right chest tube in stable position. Mild bibasilar atelectasis. No pleural effusion. No mediastinal shift. Normal heart size. Improved pneumomediastinum and neck/chest soft tissue emphysema. LOCATION: LP at 0615 Reported and signed by: Tori John D.O. CC: Rolf Oviedo; Buddy Mcdonald MD; Alvin Etienne MD; Jaspal Granados; Ubaldo Cameron MD Technologist: NGOC Huang Trnokrd Date/Time/By: 09/20/2019 (0615) : By: Mikaela [email or web address] Orig Print D/T: S: 09/20/2019 (0618) PAGE 1 Signed Report - XR CHEST 1 [id number] 07:19:00 FAX: Rolf Oviedo [place]: B St: ADM FAX: Buddy Reilly MD FAX: Alvin Troncoso MD [phone] FAX: Jaspal Arambula [phone] FAX: Ubaldo Fish [phone] Name: ALIS PITT [facility] : 1955 Age/S: 63/M [address] Unit #: [id number] Loc: V.S20 [place] [address] Phys: Rolf Oviedo Acct: [id number] Dis Date: Status: ADM IN PHONE #: [phone] Exam Date: 09/19/2019514 FAX #: [phone] Reason: chest tube in place EXAMS: CPT CODE: [id number] XR CHEST 1 V 83662 CLINICAL HISTORY: Pneumothorax with chest tube in place TECHNIQUE: AP chest x-ray COMPARISON: Previous day. IMPRESSION: Recurrent small right apical pneumothorax. Right chest tube in stable position. Mild bibasilar atelectasis. No pleural effusion. No mediastinal shift. Normal heart size. Improved pneumomediastinum and neck/chest soft tissue emphysema. ET tube, NG tube, right central venous catheter have been removed. LOCATION: LP at 0719 Reported and signed by: Tori John D.O. CC: Rolf O[place]; Buddy Mcdonald MD; Alvin Etienne MD; Jaspal Granados; Ubaldo Lion MD Technologist: Jeet Snell RT(R); LOYD ESCALANTE RT(R) Trnscrd Date/Time/By: 09/19/2019 (0719) : By: [email or web address] Orig Print D/T: S: 09/19/2019 (0722) PAGE 1 Signed Report BASIC METABOLIC [id number] 05:46:00* Test Item Value Reference Range Comments SODIUM (test code=NA) 144 mmol/L 136-145 POTASSIUM (test code=K) 3.8 mmol/L 3.5-5.1 CHLORIDE (test code=CL) 109.0 mmol/L 98-107 CARBON DIOXIDE (test code=CO2) 30.0 mmol/L 21-32 ANION GAP (test code=GAP) 8.8 10-20 GLUCOSE (test code=GLU) 103 mg/dL 74-106 BLOOD UREA NITROGEN (test code=BUN) 19 mg/dL 7-18 GLOMERULAR FILTRATION RATE (test code=GFR) > 60 mL/min >=60 Estimated GFR by using Modified MDRD formula.Chronic kidney disease is defined as either kidney damageor GFR <60 mL/min/1.73 m2 for >3 months. CREATININE (test code=CREAT) 1.10 mg/dL 0.7-1.3 BUN/CREATININE RATIO (test code=BUN/CREA) 17.8 10-20 CALCIUM (test code=CA) 8.5 mg/dL 8.5-10.1 [id number] 05:46:00* Test Item Value Reference Range Comments MAGNESIUM (test code=MAG) 1.9 mg/dL 1.8-2.4 BASIC METABOLIC [id number] 05:33:00* Test Item Value Reference Range Comments SODIUM (test code=NA) 144 mmol/L 136-145 POTASSIUM (test code=K) 3.8 mmol/L 3.5-5.1 CHLORIDE (test code=CL) 109.0 mmol/L 98-107 CARBON DIOXIDE (test code=CO2) mmol/L 21-32 ANION GAP (test code=GAP) 10-20 GLUCOSE (test code=GLU) mg/dL 74-106 BLOOD UREA NITROGEN (test code=BUN) mg/dL 7-18 GLOMERULAR FILTRATION RATE (test code=GFR) mL/min >=60 CREATININE (test code=CREAT) mg/dL 0.7-1.3 BUN/CREATININE RATIO (test code=BUN/CREA) 10-20 CALCIUM (test code=CA) mg/dL 8.5-10.1 [id number] 05:33:00* Test Item Value Reference Range Comments MAGNESIUM (test code=MAG) mg/dL 1.8-2.4 CBC W/O [id number] 04:53:00* Test Item Value Reference Range Comments WHITE BLOOD CELL (test code=WBC) 11.7 K/mm3 4.5-12.5 RED BLOOD CELL (test code=RBC) 3.80 mill/mm3 4.0-5.8 HEMOGLOBIN (test code=HGB) 10.6 gram/dL 13.0-17.5 HEMATOCRIT (test code=HCT) 32.3 % 42.0-52.0 MEAN CELL VOLUME (test code=MCV) 85.0 fL 80-98 MEAN CELL HGB (test code=MCH) 27.9 picogram 27.0-33.0 MEAN CELL HGB CONCETRATION (test code=MCHC) 32.8 gram/dL 33.0-36.0 RED CELL DISTRIBUTION WIDTH (test code=RDW) 14.9 % 11.6-16.2 PLATELET COUNT (test code=PLT) 360 K/mm3 150-450 MEAN PLATELET VOLUME (test code=MPV) 10.5 fL 6.7-11.0 BASIC METABOLIC [id number] 07:55:00* Test Item Value Reference Range Comments SODIUM (test code=NA) 143 mmol/L 136-145 POTASSIUM (test code=K) 4.7 mmol/L 3.5-5.1 CHLORIDE (test code=CL) 112.0 mmol/L 98-107 CARBON DIOXIDE (test code=CO2) 24.0 mmol/L 21-32 ANION GAP (test code=GAP) 11.7 10-20 GLUCOSE (test code=GLU) 129 mg/dL 74-106 BLOOD UREA NITROGEN (test code=BUN) 19 mg/dL 7-18 GLOMERULAR FILTRATION RATE (test code=GFR) > 60 mL/min >=60 Estimated GFR by using Modified MDRD formula.Chronic kidney disease is defined as either kidney damageor GFR <60 mL/min/1.73 m2 for >3 months. CREATININE (test code=CREAT) 1.10 mg/dL 0.7-1.3 BUN/CREATININE RATIO (test code=BUN/CREA) 17.4 10-20 CALCIUM (test code=CA) 8.9 mg/dL 8.5-10.1 [id number] 07:55:00* Test Item Value Reference Range Comments PHOSPHORUS (test code=PHOS) 4.2 mg/dL 2.5-4.9 [id number] 07:55:00* Test Item Value Reference Range Comments MAGNESIUM (test code=MAG) 2.0 mg/dL 1.8-2.4 - XR CHEST 1 [id number] 07:49:00 FAX: Rolf Oviedo [place]: B St: ADM FAX: Buddy Reilly MD FAX: Alvin Troncoso MD [phone] FAX: Jaspal Arambula [phone] FAX: Ubaldo Fish [phone] Name: ALIS PITT [facility] : 1955 Age/S: 63/M [address] [facility] Unit #: [id number] Loc: [address] [address] Phys: Rolf Oviedo Acct: [id number] Dis Date: Status: ADM IN PHONE #: [phone] Exam Date: 09/18/2019734 FAX #: [phone] Reason: chest tube in place EXAMS: CPT CODE: [id number] XR CHEST 1 V 83469 EXAM: Chest x-ray, one view; INFORMATION: Pneumothorax after lung biopsy; status post chest tube placement; IMPRESSION: 1. No evidence of residual right-sided pneumothorax. 2. Otherwise, no major change compared with yesterday's study; well-positioned lines and tubes including large bore right chest tube, endotracheal tube, nasogastric tube and right IJ central line. 3. Persistent soft tissue emphysema of the right chest wall and the supraclavicular and lower neck region bilaterally. Location code: GW E lectronically Signed by Klaus Lion on 08/28 at 0749 Reported and signed by: Alee Lion M.D. CC: Rolf Oviedo; Buddy Mcdonald MD; Alvin Heck MD; Jaspal Granados; Ubaldo Lion MD Technologist: Roxanna Warren RT(R); Mitchell Shahid RT(R) Trnscrd Date/Time/By: 09/18/2019 (0749) : By: Girish Orig Print D/T: S: 09/18/2019 (0752) PAGE 1 Signed Report CBC W/AUTO [id number] 07:24:00* Test Item Value Reference Range Comments WHITE BLOOD CELL (test code=WBC) 12.3 K/mm3 4.5-12.5 RED BLOOD CELL (test code=RBC) 3.80 mill/mm3 4.0-5.8 HEMOGLOBIN (test code=HGB) 10.5 gram/dL 13.0-17.5 HEMATOCRIT (test code=HCT) 32.1 % 42.0-52.0 MEAN CELL VOLUME (test code=MCV) 84.5 fL 80-98 MEAN CELL HGB (test code=MCH) 27.6 picogram 27.0-33.0 MEAN CELL HGB CONCETRATION (test code=MCHC) 32.7 gram/dL 33.0-36.0 RED CELL DISTRIBUTION WIDTH (test code=RDW) 14.9 % 11.6-16.2 RED CELL DISTRIBUTION WIDTH SD (test code=RDW-SD) 46.3 fL 37.0-51.0 PLATELET COUNT (test code=PLT) 402 K/mm3 150-450 MEAN PLATELET VOLUME (test code=MPV) 10.6 fL 6.7-11.0 NEUTROPHIL % (test code=NT%) 85.6 % 39.0-69.0 IMMATURE GRANULOCYTE % (test code=IG%) 0.6 % 0.0-5.0 LYMPHOCYTE % (test code=LY%) 8.0 % 25.0-55.0 MONOCYTE % (test code=MO%) 5.4 % 0.0-10.0 EOSINOPHIL % (test code=EO%) 0.2 % 0.0-5.0 BASOPHIL % (test code=BA%) 0.2 % 0.0-1.0 NUCLEATED RBC % (test code=NRBC%) 0.0 % 0-0 NEUTROPHIL # (test code=NT#) 10.54 K/mm3 1.8-7.7 IMMATURE GRANULOCYTE # (test code=IG#) 0.07 x10 3/uL 0-0.03 LYMPHOCYTE # (test code=LY#) 0.98 K/mm3 1.0-5.0 MONOCYTE # (test code=MO#) 0.67 K/mm3 0-0.8 EOSINOPHIL # (test code=EO#) 0.02 K/mm3 0.0-0.5 BASOPHIL # (test code=BA#) 0.02 K/mm3 0.0-0.2 NUCLEATED RBC # (test code=NRBC#) 0.00 K/mm3 0.0-0.1 - XR CHEST 1 [id number] 22:39:00 FAX: Rolf Oviedo [place]: St: ADM FAX: Buddy Reilly MD FAX: Alvin Troncoso MD [phone] FAX: Jaspal Arambula [phone] FAX: Ubaldo Fish [phone] Name: SWEETIEALISALLIE LOZANO [facility] : 1955 Age/S: 63/M [address] [facility] Unit #: [id number] Loc: [address] [address] Phys: Rolf Oviedo Acct: [id number] Dis Date: Status: ADM IN PHONE #: [phone] Exam Date: 09/17/20192236 FAX #: [phone] Reason: OG TUBE PLACEMENT EXAMS: CPT CODE: [id number] XR CHEST 1 V 64125 REASON FOR EXAM: OG TUBE PLACEMENT EXAM ORDER DATE: 09/17/2019 12:00 AM Ordering: RINA Saxena Attending:Buddy Mcdonald MD Location: PROCEDURE: - XR CHEST 1 V COMPARISON: 08/17/2019 at 9:57 PM FINDINGS: Portable AP frontal view of the chest obtained at 10:29 PM. No significant interval change from prior exam. IMPRESSION: The OG tube tip is in the stomach with the distal tip extends below the inferior border of the radiograph at 6213 Reported and signed by: Arjun Wiley M.D. CC: Rolf Oviedo; Buddy Mcdonald MD; Alvin Etienne MD; Luis Granados; Ubaldo Lion MD Technologist: RT IZAIAH(R) Trnscrd Date/Time/By: 09/17/2019 ( 1947) : By: AnaVTL Orig Print D/T: S: 09/17/2019 (7286) PAGE 1 Signed Report - XR CHEST 1 [id number] 22:14:00 FAX: Buddy Reilly MD [place]: St: ADM FAX: Alvin Troncoso MD [phone] FAX: Guerda John MD FAX: Jaspal Arambula [phone] FAX: Ubaldo Fish [phone] Name: ALIS PITT [facility] : 1955 Age/S: 63/M [address] [facility] Unit #: [id number] Loc: [address] [address] Phys: Guerda John MD Acct: [id number] Dis Date: Status: ADM IN PHONE #: [phone] Exam Date: 09/17/20192201 FAX #: [phone] Reason: s/p VATS EXAMS: CPT CODE: [id number] XR CHEST 1 V 74413 REASON FOR EXAM: s/p VATS EXAM ORDER DATE: 09/17/2019 8:51 PM Ordering: Guerda John MD Attending:Buddy Mcdonald MD Location: PROCEDURE: - XR CHEST 1 V COMPARISON: 09/16/2019 at 10:05 AM FINDINGS: Portable AP frontal view of the chest obtained at 9:57 PM shows clear lungs without evidence of consolidation. There is no evidence of effusion. The heart size is within normal limits. Pulmonary vasculatures are unremarkable. IMPRESSION: Slight interval decrease in the size of the subcutaneous e mphysema. Surgical machelle in the right apex with right-sided surgical chest tube. No evidence of pneumothorax. ET tube is 2 cm above the car jak. Right IJ central line tip is in the SVC at 8616 Reported and kathrine d by: Arjun Wiley M.D. CC: Buddy Mcdonald MD; Alvin Etienne MD; Guerda Betancourt MD; Jaspal Granados; Ubaldo Lion MD Technologist: RT JUAN MIGUEL(R) Trnscrd Date/Time/By: 09/17/2019 (2218) : By: SunL Orig Print D /T: S: 09/17/2019 (3883) PAGE 1 S igned Report CBC W/AUTO [id number] 22:04:00* Test Item Value Reference Range Comments WHITE BLOOD CELL (test code=WBC) 14.7 K/mm3 4.5-12.5 RED BLOOD CELL (test code=RBC) 3.83 mill/mm3 4.0-5.8 HEMOGLOBIN (test code=HGB) 10.6 gram/dL 13.0-17.5 HEMATOCRIT (test code=HCT) 32.5 % 42.0-52.0 MEAN CELL VOLUME (test code=MCV) 84.9 fL 80-98 MEAN CELL HGB (test code=MCH) 27.7 picogram 27.0-33.0 MEAN CELL HGB CONCETRATION (test code=MCHC) 32.6 gram/dL 33.0-36.0 RED CELL DISTRIBUTION WIDTH (test code=RDW) 14.7 % 11.6-16.2 RED CELL DISTRIBUTION WIDTH SD (test code=RDW-SD) 45.5 fL 37.0-51.0 PLATELET COUNT (test code=PLT) 397 K/mm3 150-450 MEAN PLATELET VOLUME (test code=MPV) 10.6 fL 6.7-11.0 NEUTROPHIL % (test code=NT%) 93.8 % 39.0-69.0 IMMATURE GRANULOCYTE % (test code=IG%) 0.5 % 0.0-5.0 LYMPHOCYTE % (test code=LY%) 3.2 % 25.0-55.0 MONOCYTE % (test code=MO%) 2.3 % 0.0-10.0 EOSINOPHIL % (test code=EO%) 0.1 % 0.0-5.0 BASOPHIL % (test code=BA%) 0.1 % 0.0-1.0 NUCLEATED RBC % (test code=NRBC%) 0.0 % 0-0 NEUTROPHIL # (test code=NT#) 13.75 K/mm3 1.8-7.7 IMMATURE GRANULOCYTE # (test code=IG#) 0.08 x10 3/uL 0-0.03 LYMPHOCYTE # (test code=LY#) 0.47 K/mm3 1.0-5.0 MONOCYTE # (test code=MO#) 0.33 K/mm3 0-0.8 EOSINOPHIL # (test code=EO#) 0.01 K/mm3 0.0-0.5 BASOPHIL # (test code=BA#) 0.01 K/mm3 0.0-0.2 NUCLEATED RBC # (test code=NRBC#) 0.00 K/mm3 0.0-0.1 MANUAL DIFF REQUIRED (test code=MDIFF) NO BASIC METABOLIC [id number] 21:56:00* Test Item Value Reference Range Comments SODIUM (test code=NA) 144 mmol/L 136-145 POTASSIUM (test code=K) 4.8 mmol/L 3.5-5.1 CHLORIDE (test code=CL) 111.0 mmol/L 98-107 CARBON DIOXIDE (test code=CO2) 27.0 mmol/L 21-32 ANION GAP (test code=GAP) 10.8 10-20 GLUCOSE (test code=GLU) 162 mg/dL 74-106 BLOOD UREA NITROGEN (test code=BUN) 17 mg/dL 7-18 GLOMERULAR FILTRATION RATE (test code=GFR) > 60 mL/min >=60 Estimated GFR by using Modified MDRD formula.Chronic kidney disease is defined as either kidney damageor GFR <60 mL/min/1.73 m2 for >3 months. CREATININE (test code=CREAT) 1.00 mg/dL 0.7-1.3 BUN/CREATININE RATIO (test code=BUN/CREA) 17.1 10-20 CALCIUM (test code=CA) 8.3 mg/dL 8.5-10.1 [id number] 21:56:00* Test Item Value Reference Range Comments PHOSPHORUS (test code=PHOS) 2.9 mg/dL 2.5-4.9 [id number] 21:56:00* Test Item Value Reference Range Comments MAGNESIUM (test code=MAG) 1.8 mg/dL 1.8-2.4 BASIC METABOLIC [id number] 21:53:00* Test Item Value Reference Range Comments SODIUM (test code=NA) 144 mmol/L 136-145 POTASSIUM (test code=K) 4.8 mmol/L 3.5-5.1 CHLORIDE (test code=CL) 111.0 mmol/L 98-107 CARBON DIOXIDE (test code=CO2) mmol/L 21-32 ANION GAP (test code=GAP) 10-20 GLUCOSE (test code=GLU) mg/dL 74-106 BLOOD UREA NITROGEN (test code=BUN) mg/dL 7-18 GLOMERULAR FILTRATION RATE (test code=GFR) mL/min >=60 CREATININE (test code=CREAT) mg/dL 0.7-1.3 BUN/CREATININE RATIO (test code=BUN/CREA) 10-20 CALCIUM (test code=CA) mg/dL 8.5-10.1 [id number] 21:53:00* Test Item Value Reference Range Comments PHOSPHORUS (test code=PHOS) mg/dL 2.5-4.9 [id number] 21:53:00* Test Item Value Reference Range Comments MAGNESIUM (test code=MAG) mg/dL 1.8-2.4 ARTERIAL BLOOD [id number] 18:37:00* Test Item Value Reference Range Comments ARTERIAL BLOOD GAS PH (test code=PHA) 7.29 7.35-7.45 ARTERIAL BLOOD GAS PCO2 (test code=PCO2A) 47.9 mm Hg 35-45 ARTERIAL BLOOD GAS PO2 (test code=PO2A) 67.5 mmHg 80-100 BICARBONATE TOTAL HCO3 (test code=HCO3) 22.7 mmol/L 23.0-27.0 BASE EXCESS (test code=BENOIT) -4.0 mmol/L -3.0-5.0 Results called to and read back by Phacarmelt 18:36 - 09/17/2019; by Una ABG O2 SATURATION (test code=SATA) 90.9 % 90.0-98.0 ABG TYPE (test code=TYPEA) Arterial FIO2 (test code=FIO2A) 50.0 ABG VENT MODE (test code=MODEA) SIMV ABG VENT RESP RATE (test code=RRA) 12.0 per min ABG TIDAL VOLUME (test code=TVA) 500.0 mL ABG PEEP (test code=PEEPA) 5.0 cmH2O ABG SITE (test code=SITEA) ARTERIAL LINE MODIFIED ALLENS (test code=MODALL) Unable CHECK PERFORMED HEMATOCRIT (test code=HCT/ABG) 37 % 42-52 TOTAL HGB (test code=THB) 12.7 gram/dL 13.0-17.5 HGB O2 SAT (test code=HBOSAT) 89.8 % 94.00-98.00 CARBOXYHEMOGLOBIN (test code=HOHGBT) 0.7 %totalHg 0.5-1.5 METHEMOGLOBIN (test code=METHGB) 0.5 % 0.0-1.50 O2 CONTENT (test code=O2CT) 16.1 % vol 18.0-22.0 COMPREHENSIVE METABOLIC [id number] 04:46:00* Test Item Value Reference Range Comments SODIUM (test code=NA) 145 mmol/L 136-145 POTASSIUM (test code=K) 3.9 mmol/L 3.5-5.1 CHLORIDE (test code=CL) 108.0 mmol/L 98-107 CARBON DIOXIDE (test code=CO2) 31.0 mmol/L 21-32 ANION GAP (test code=GAP) 9.9 10-20 GLUCOSE (test code=GLU) 115 mg/dL 74-106 BLOOD UREA NITROGEN (test code=BUN) 18 mg/dL 7-18 GLOMERULAR FILTRATION RATE (test code=GFR) > 60 mL/min >=60 Estimated GFR by using Modified MDRD formula.Chronic kidney disease is defined as either kidney damageor GFR <60 mL/min/1.73 m2 for >3 months. CREATININE (test code=CREAT) 1.10 mg/dL 0.7-1.3 BUN/CREATININE RATIO (test code=BUN/CREA) 17.0 10-20 TOTAL PROTEIN (test code=PROT) 6.6 gram/dL 6.4-8.2 ALBUMIN (test code=ALB) 2.7 g/dL 3.4-5.0 GLOBULIN (test code=GLOB) 3.9 gram/dL 2.7-4.2 ALBUMIN/GLOBULIN RATIO (test code=A/G) 0.7 0.75-1.50 CALCIUM (test code=CA) 8.9 mg/dL 8.5-10.1 BILIRUBIN TOTAL (test code=BILT) 0.10 mg/dL 0.0-1.0 SGOT/AST (test code=AST) 37 IUnit/L 15-37 SGPT/ALT (test code=ALT) 60 IUnit/L 12-78 ALKALINE PHOSPHATASE TOTAL (test code=ALKP) 88 IUnit/L 45-117 Note change in reference range due to change in reagent. [id number] 04:46:00* Test Item Value Reference Range Comments MAGNESIUM (test code=MAG) 2.2 mg/dL 1.8-2.4 CBC W/AUTO [id number] 04:25:00* Test Item Value Reference Range Comments WHITE BLOOD CELL (test code=WBC) 7.1 K/mm3 4.5-12.5 RED BLOOD CELL (test code=RBC) 3.98 mill/mm3 4.0-5.8 HEMOGLOBIN (test code=HGB) 11.0 gram/dL 13.0-17.5 HEMATOCRIT (test code=HCT) 34.2 % 42.0-52.0 MEAN CELL VOLUME (test code=MCV) 85.9 fL 80-98 MEAN CELL HGB (test code=MCH) 27.6 picogram 27.0-33.0 MEAN CELL HGB CONCETRATION (test code=MCHC) 32.2 gram/dL 33.0-36.0 RED CELL DISTRIBUTION WIDTH (test code=RDW) 14.3 % 11.6-16.2 RED CELL DISTRIBUTION WIDTH SD (test code=RDW-SD) 45.2 fL 37.0-51.0 PLATELET COUNT (test code=PLT) 343 K/mm3 150-450 MEAN PLATELET VOLUME (test code=MPV) 10.2 fL 6.7-11.0 NEUTROPHIL % (test code=NT%) 77.8 % 39.0-69.0 IMMATURE GRANULOCYTE % (test code=IG%) 0.7 % 0.0-5.0 LYMPHOCYTE % (test code=LY%) 13.2 % 25.0-55.0 MONOCYTE % (test code=MO%) 6.4 % 0.0-10.0 EOSINOPHIL % (test code=EO%) 1.8 % 0.0-5.0 BASOPHIL % (test code=BA%) 0.1 % 0.0-1.0 NUCLEATED RBC % (test code=NRBC%) 0.0 % 0-0 NEUTROPHIL # (test code=NT#) 5.55 K/mm3 1.8-7.7 IMMATURE GRANULOCYTE # (test code=IG#) 0.05 x10 3/uL 0-0.03 LYMPHOCYTE # (test code=LY#) 0.94 K/mm3 1.0-5.0 MONOCYTE # (test code=MO#) 0.46 K/mm3 0-0.8 EOSINOPHIL # (test code=EO#) 0.13 K/mm3 0.0-0.5 BASOPHIL # (test code=BA#) 0.01 K/mm3 0.0-0.2 NUCLEATED RBC # (test code=NRBC#) 0.00 K/mm3 0.0-0.1 MANUAL DIFF REQUIRED (test code=MDIFF) NO BARTONELLA HENSELAE [id number] 11:10:00* Test Item Value Reference Range Comments AB BARTONELLA HENSELAE IGG (test code=BARTGAB) Negative titer Neg:<1:320 Bartonella henselae IgG . AB BARTONELLA HENSELAE IGM (test code=BARTMAB) Negative titer Neg:<1:100 Bartonella henselae IgM . AB BARTONELLA TSANG IGG (test code=BARTQIGG) Negative titer Neg:<1:320 Bartonella tsang IgG . AB BARTONELLA TSANG IGM (test code=BARTQIGM) Negative titer Neg:<1:100 Note: Bartonella henselae is now regarded as the etiologicagent of [place] Disease, bacillary angiomatosis,endocarditis and fever with bacteremia. Bartonellaquintana also causes bacillary angiomatosis particularlyamong immunocompromised patients, and trench fever.This test was developed and its performance characteristicsdetermined by [facility]. It has not been cleared or approvedby the Food and Drug Administration. The FDA hasdetermined that such clearance or approval is notnecessary.Performed At: [address] [id number] Sanjai MD Ph:[phone] quintana IgM . - XR CHEST 1 [id number] 10:25:00 FAX: Buddy Reilly MD [place]: B St: ADM FAX: Marli Pitts NP [phone] FAX: Alvin Troncoso MD [phone] FAX: Jaspal Arambula [phone] FAX: Ubaldo Fish [phone] Name: ALIS PITT [facility] : 1955 Age/S: 63/M [address] Unit #: [id number] Loc: V.[address] [place] [address] Phys: Marli Pitts NP Acct: [id number] Dis Date: Status: ADM IN PHONE #: [phone] Exam Date: 09/16/2019 1005 FAX #: [phone] Reason: chest tube EXAMS: CPT CODE: [id number] XR CHEST 1 V 11322 REASON FOR EXAM: chest tube Exam Order Date: 09/16/2019 2:00 AM Ordering M.D.: Marli Pitts NP PROCEDURE: - XR CHEST 1 V COMPARISON: Frontal chest x-ray the previous morning FINDINGS: Extensive subcutaneous emphysema seen throughout the chest wall. This appears similar to the prior exam. Right-sided chest tube is unchanged in position. Small right apical pneumothorax appears similar to the previous exam. Atelectatic changes are present in the bilateral lung bases. These appear slightly improved from the prior exam. The cardiomediastinal silhouette is normal in size. No acute bony abnormality. Upper abdomen is grossly within normal limits. IMPRESSION: Stable size in the right apical pneumothorax. Slight improvement in the bibasilar subsegmental atelectasis. Extensive subcutaneous emphysematous changes appear similar. Location: [facility] at 1025 Reported and signed by: Venancio Sawyer MD CC: Buddy Mcdonald MD; Marli Pitts NP; Alvin Etienne MD; Jaspal Granados; Ubaldo Lion MD Technologist: Kari Burrell RT(R); Nickie Mera RT(R) Trnscrd Date/Time/By: 09/16/2019 (1025) : By: [email or web address] Orig Print D/T: S: 09/16/2019 (0436) PAGE 1 Signed Report BASIC METABOLIC [id number] 02:22:00* Test Item Value Reference Range Comments SODIUM (test code=NA) 143 mmol/L 136-145 POTASSIUM (test code=K) 3.8 mmol/L 3.5-5.1 CHLORIDE (test code=CL) 107.0 mmol/L 98-107 CARBON DIOXIDE (test code=CO2) 27.0 mmol/L 21-32 ANION GAP (test code=GAP) 12.8 10-20 GLUCOSE (test code=GLU) 111 mg/dL 74-106 BLOOD UREA NITROGEN (test code=BUN) 19 mg/dL 7-18 GLOMERULAR FILTRATION RATE (test code=GFR) > 60 mL/min >=60 Estimated GFR by using Modified MDRD formula.Chronic kidney disease is defined as either kidney damageor GFR <60 mL/min/1.73 m2 for >3 months. CREATININE (test code=CREAT) 0.90 mg/dL 0.7-1.3 BUN/CREATININE RATIO (test code=BUN/CREA) 20.8 10-20 CALCIUM (test code=CA) 9.0 mg/dL 8.5-10.1 CBC W/AUTO [id number] 02:14:00* Test Item Value Reference Range Comments WHITE BLOOD CELL (test code=WBC) 7.5 K/mm3 4.5-12.5 RED BLOOD CELL (test code=RBC) 3.98 mill/mm3 4.0-5.8 HEMOGLOBIN (test code=HGB) 10.9 gram/dL 13.0-17.5 HEMATOCRIT (test code=HCT) 34.0 % 42.0-52.0 MEAN CELL VOLUME (test code=MCV) 85.4 fL 80-98 MEAN CELL HGB (test code=MCH) 27.4 picogram 27.0-33.0 MEAN CELL HGB CONCETRATION (test code=MCHC) 32.1 gram/dL 33.0-36.0 RED CELL DISTRIBUTION WIDTH (test code=RDW) 14.1 % 11.6-16.2 RED CELL DISTRIBUTION WIDTH SD (test code=RDW-SD) 44.1 fL 37.0-51.0 PLATELET COUNT (test code=PLT) 328 K/mm3 150-450 MEAN PLATELET VOLUME (test code=MPV) 10.2 fL 6.7-11.0 NEUTROPHIL % (test code=NT%) 78.2 % 39.0-69.0 IMMATURE GRANULOCYTE % (test code=IG%) 0.3 % 0.0-5.0 LYMPHOCYTE % (test code=LY%) 12.9 % 25.0-55.0 MONOCYTE % (test code=MO%) 6.6 % 0.0-10.0 EOSINOPHIL % (test code=EO%) 1.9 % 0.0-5.0 BASOPHIL % (test code=BA%) 0.1 % 0.0-1.0 NUCLEATED RBC % (test code=NRBC%) 0.0 % 0-0 NEUTROPHIL # (test code=NT#) 5.83 K/mm3 1.8-7.7 IMMATURE GRANULOCYTE # (test code=IG#) 0.02 x10 3/uL 0-0.03 LYMPHOCYTE # (test code=LY#) 0.96 K/mm3 1.0-5.0 MONOCYTE # (test code=MO#) 0.49 K/mm3 0-0.8 EOSINOPHIL # (test code=EO#) 0.14 K/mm3 0.0-0.5 BASOPHIL # (test code=BA#) 0.01 K/mm3 0.0-0.2 NUCLEATED RBC # (test code=NRBC#) 0.00 K/mm3 0.0-0.1 MANUAL DIFF REQUIRED (test code=MDIFF) NO BASIC METABOLIC [id number] 02:13:00* Test Item Value Reference Range Comments SODIUM (test code=NA) 143 mmol/L 136-145 POTASSIUM (test code=K) 3.8 mmol/L 3.5-5.1 CHLORIDE (test code=CL) 107.0 mmol/L 98-107 CARBON DIOXIDE (test code=CO2) mmol/L 21-32 ANION GAP (test code=GAP) 10-20 GLUCOSE (test code=GLU) mg/dL 74-106 BLOOD UREA NITROGEN (test code=BUN) mg/dL 7-18 GLOMERULAR FILTRATION RATE (test code=GFR) mL/min >=60 CREATININE (test code=CREAT) mg/dL 0.7-1.3 BUN/CREATININE RATIO (test code=BUN/CREA) 10-20 CALCIUM (test code=CA) mg/dL 8.5-10.[id number] 09:12:00* Test Item Value Reference Range Comments FLUID WBC AUTO (test code=WBCFLA) 2298 cells/uL FLUID RBC AUTO (test code=RBCFLA) 59745 cells/uL FLUID TOTAL CELLS (test code=TCFL) 2553 cells/uL >0 Fluid WBC RBC PMN% MN%Type cells/uL cells/uL CSF (0-5) n/a (2+/-4) (90+/-20)Peritoneal n/a n/a n/a n/aPleural n/a n/a n/a n/aSynovial <200 n/a <25% <75% CSF (0-30) n/a (4+/-4) (90+/-20) PLEURAL FLD COLOR (test code=COLPL) RED PLEURAL FLD APPEARANCE (test code=APPPL) CLOUDY PLEURAL FLD POLY (test code=POLYPL) 16.0 % PLEURAL FLD LYMPHOCYTE (test code=LYMPHPL) 20.0 % PLEURAL FLD EOSINOPHIL (test code=EOSPL) 22.0 % PLEURAL FLD MACROPHAGE (test code=MACPL) 42.0 % TOTAL CELLS COUNTED ON DIFF (test code=TOTCELLFL) 100 cells REVIEWED BY (test code=REVIEW) PATHOLOGIST Reviewed by BETTY Johns - XR CHEST 1 [id number] 06:40:00 FAX: Buddy Reilly MD [place]: B St: ADM FAX: Marli Pitts NP [phone] FAX: Alvin Troncoso MD [phone] FAX: Jaspal Arambula [phone] FAX: Ubaldo Fish [phone] Name: ALIS PITT [facility] : 1955 Age/S: 63/M [address] [facility] Unit #: [id number] Loc: [address] [address] Phys: Marli Pitts NP Acct: [id number] Dis Date: Status: ADM IN PHONE #: [phone] Exam Date: 09/15/2019 0549 FAX #: [phone] Reason: chest tube EXAMS: CPT CODE: [id number] XR CHEST 1 V 40091 CLINICAL HISTORY: Pneumothorax with chest tube TECHNIQUE: AP chest x-ray COMPARISON: Previous day. IMPRESSION: Right chest tube in stable position with small apical pneumothorax. Stable bibasilar airspace opacification and atelectasis. No pleural effusion. No mediastinal shift. Pneumomediastinum. Normal heart size. Bilateral neck and chest soft tissue emphysema. LOCATION: LP at 0640 Reported and signed by: Tori John D.O. CC: Buddy Mcdonald MD; Marli Giraldo NP; Alvin Etienne MD; Jaspal Granados; Ever Lion MD Technologist: NGOC DRUMMOND JR; Kaylee Rodríguez Trnokrd Date/Time/By: 09/15/2019 (0640) : By: [email or web address] Orig Print D/T: S: 09/15/2019 (0643) PAGE 1 Signed Report CBC W/AUTO DIFF 2019-09-15 04:17:00* Test Item Value Reference Range Comments WHITE BLOOD CELL (test code=WBC) 8.2 K/mm3 4.5-12.5 RED BLOOD CELL (test code=RBC) 4.10 mill/mm3 4.0-5.8 HEMOGLOBIN (test code=HGB) 11.3 gram/dL 13.0-17.5 HEMATOCRIT (test code=HCT) 34.5 % 42.0-52.0 MEAN CELL VOLUME (test code=MCV) 84.1 fL 80-98 MEAN CELL HGB (test code=MCH) 27.6 picogram 27.0-33.0 MEAN CELL HGB CONCETRATION (test code=MCHC) 32.8 gram/dL 33.0-36.0 RED CELL DISTRIBUTION WIDTH (test code=RDW) 14.3 % 11.6-16.2 RED CELL DISTRIBUTION WIDTH SD (test code=RDW-SD) 44.0 fL 37.0-51.0 PLATELET COUNT (test code=PLT) 324 K/mm3 150-450 MEAN PLATELET VOLUME (test code=MPV) 10.4 fL 6.7-11.0 NEUTROPHIL % (test code=NT%) 79.6 % 39.0-69.0 IMMATURE GRANULOCYTE % (test code=IG%) 0.2 % 0.0-5.0 LYMPHOCYTE % (test code=LY%) 11.8 % 25.0-55.0 MONOCYTE % (test code=MO%) 6.6 % 0.0-10.0 EOSINOPHIL % (test code=EO%) 1.7 % 0.0-5.0 BASOPHIL % (test code=BA%) 0.1 % 0.0-1.0 NUCLEATED RBC % (test code=NRBC%) 0.0 % 0-0 NEUTROPHIL # (test code=NT#) 6.52 K/mm3 1.8-7.7 IMMATURE GRANULOCYTE # (test code=IG#) 0.02 x10 3/uL 0-0.03 LYMPHOCYTE # (test code=LY#) 0.97 K/mm3 1.0-5.0 MONOCYTE # (test code=MO#) 0.54 K/mm3 0-0.8 EOSINOPHIL # (test code=EO#) 0.14 K/mm3 0.0-0.5 BASOPHIL # (test code=BA#) 0.01 K/mm3 0.0-0.2 NUCLEATED RBC # (test code=NRBC#) 0.00 K/mm3 0.0-0.1 MANUAL DIFF REQUIRED (test code=MDIFF) NO BASIC METABOLIC [id number] 04:05:00* Test Item Value Reference Range Comments SODIUM (test code=NA) 142 mmol/L 136-145 POTASSIUM (test code=K) 4.0 mmol/L 3.5-5.1 CHLORIDE (test code=CL) 106.0 mmol/L 98-107 CARBON DIOXIDE (test code=CO2) 29.0 mmol/L 21-32 ANION GAP (test code=GAP) 11.0 10-20 GLUCOSE (test code=GLU) 105 mg/dL 74-106 BLOOD UREA NITROGEN (test code=BUN) 17 mg/dL 7-18 GLOMERULAR FILTRATION RATE (test code=GFR) > 60 mL/min >=60 Estimated GFR by using Modified MDRD formula.Chronic kidney disease is defined as either kidney damageor GFR <60 mL/min/1.73 m2 for >3 months. CREATININE (test code=CREAT) 1.00 mg/dL 0.7-1.3 BUN/CREATININE RATIO (test code=BUN/CREA) 17.8 10-20 CALCIUM (test code=CA) 8.7 mg/dL 8.5-10.1 [id number] 04:05:00* Test Item Value Reference Range Comments PHOSPHORUS (test code=PHOS) 3.4 mg/dL 2.5-4.9 [id number] 04:05:00* Test Item Value Reference Range Comments MAGNESIUM (test code=MAG) 1.8 mg/dL 1.8-2.4 BASIC METABOLIC [id number] 03:56:00* Test Item Value Reference Range Comments SODIUM (test code=NA) 142 mmol/L 136-145 POTASSIUM (test code=K) 4.0 mmol/L 3.5-5.1 CHLORIDE (test code=CL) 106.0 mmol/L 98-107 CARBON DIOXIDE (test code=CO2) mmol/L 21-32 ANION GAP (test code=GAP) 10-20 GLUCOSE (test code=GLU) mg/dL 74-106 BLOOD UREA NITROGEN (test code=BUN) mg/dL 7-18 GLOMERULAR FILTRATION RATE (test code=GFR) mL/min >=60 CREATININE (test code=CREAT) mg/dL 0.7-1.3 BUN/CREATININE RATIO (test code=BUN/CREA) 10-20 CALCIUM (test code=CA) mg/dL 8.5-10.1 [id number] 03:56:00* Test Item Value Reference Range Comments PHOSPHORUS (test code=PHOS) mg/dL 2.5-4.9 [id number] 03:56:00* Test Item Value Reference Range Comments MAGNESIUM (test code=MAG) mg/dL 1.8-2.[id number] 21:29:00* Test Item Value Reference Range Comments FLUID WBC AUTO (test code=WBCFLA) 2298 cells/uL FLUID RBC AUTO (test code=RBCFLA) 42383 cells/uL FLUID TOTAL CELLS (test code=TCFL) 2553 cells/uL >0 Fluid WBC RBC PMN% MN%Type cells/uL cells/uL CSF (0-5) n/a (2+/-4) (90+/-20)Peritoneal n/a n/a n/a n/aPleural n/a n/a n/a n/aSynovial <200 n/a <25% <75% CSF (0-30) n/a (4+/-4) (90+/-20) PLEURAL FLD COLOR (test code=COLPL) RED PLEURAL FLD APPEARANCE (test code=APPPL) CLOUDY PLEURAL FLD POLY (test code=POLYPL) 16.0 % PLEURAL FLD LYMPHOCYTE (test code=LYMPHPL) 20.0 % PLEURAL FLD EOSINOPHIL (test code=EOSPL) 22.0 % PLEURAL FLD MACROPHAGE (test code=MACPL) 42.0 % TOTAL CELLS COUNTED ON DIFF (test code=TOTCELLFL) 100 cells REVIEWED BY (test code=REVIEW) PATHOLOGIST AB HIV 1 20:48:00* Test Item Value Reference Range Comments AB HIV 1 2 (test code=PLO43AR) Nonreactive NonReactive It is recognized that currently available assays for thedetection of antibodies to HIV-1 and/or HIV-2 may notdetect all infected individuals. A negative test result doesnot exclude the possibility of exposure to or infection withHIV. HIV antibodies may be undetectable in some stages ofthe infection and in some clinical conditions. PLEURAL FLD CELL [id number] 19:56:00* Test Item Value Reference Range Comments FLUID WBC AUTO (test code=WBCFLA) 2298 cells/uL FLUID RBC AUTO (test code=RBCFLA) 90311 cells/uL FLUID TOTAL CELLS (test code=TCFL) 2553 cells/uL >0 Fluid WBC RBC PMN% MN%Type cells/uL cells/uL CSF (0-5) n/a (2+/-4) (90+/-20)Peritoneal n/a n/a n/a n/aPleural n/a n/a n/a n/aSynovial <200 n/a <25% <75% CSF (0-30) n/a (4+/-4) (90+/-20) PLEURAL FLD COLOR (test code=COLPL) PLEURAL FLD APPEARANCE (test code=APPPL) PLEURAL FLD WBC (test code=WBCPL) per uL 0-1000 PLEURAL FLD RBC (test code=RBCPL) per uL 0-50 TOTAL CELLS COUNTED ON DIFF (test code=TOTCELLFL) cells REVIEWED BY (test code=REVIEW) PATHOLOGIST LUNG,[id number] 16:58:00 RUN DATE: 09/14/19 [place] PAGE 1 RUN TIME: 1658 Specimen Inqui ry RUN USER: INTERFACE PATIENT: ALIS PITT ACCT #: [id number] LOC: ANDREW U #: [id number] AGE/SX: 63/M ROOM: [facility] RE09/10/19REG DR: Buddy Mcdonald MD : 55 BED: A DIS: STATUS: ADM IN TLOC: SPEC #: [id number] RECD: 09/09/19 STATUS: ANJUM RE #: [id number] LULA: 09/09/[address]: Ubaldo Lion MD ENTERED: 09/09/19 SP TYPE: LUNG BX OTHR DR: Alvin Etienne MD, David Wayne DOORDERED: GROSS COPIES TO: Alvin Etienne MD [address] [address] Jaspal Granados e DO [address] [place], [place] [address] Ubaldo Lion MD [address] [place] [address] MARKERS: INTRADEPAR TMENTAL CONSULT PROCEDURES: GROSS (09/14/19-151) TISSUES: LUNG, NOS - MASS BX, 4SLIDES RUL CLINICAL HISTORY COLLECTION DATE: 09/09/19 HISTORY RIGHT LUNG MASS COMMENT The touch prep slides show a alon kground of blood with scattered macrophages and a small number of acute and chr onic inflammatory cells. Multiple levels of the biopsy tissue are examined. T hese show a small amount of alveolar lung parenchyma. A few macrophages are id entified within alveolar spaces. Increased fibrosis and chronic inflammation is present associated with necrotizing granuloma formation. Increased neutrophils and eosinophils are not seen in these areas. The necrotic material has a bland appearance. No organisms are identified by AFB and GMS stains. No asteroid bodies or polarizable material is identified. The findings are non-specific a nd clinical correlation is necessary. Features diagnostic of malignancy are no t identified in the tissue examined. The findings were initially discussed with Dr. Wiley 09/13/19 at 2:30 PM. After reviewing CONTINUED ON NEXT PAGE RUN DATE: 09/14/19 [facility] PAGE 2 RUN TIME: 8 Specimen Inquiry RUN USER: INTERFACE SPEC #: [id number] PATIENT: ALIS PITT #[id number] (Continued) -- COMMENT (Continued) the AFB and GMS stains, the f indings were discussed with Dr. John 09/14/19 at 2:50 PM. Clinical correlation is necessary. Intradepartmental consultation: FA. FINAL DIAGNOSIS Lung, right upper lobe mass, biopsy with touch prep: NECROTIZING GRANU LOMATOUS INFLAMMATION IN LUNG PARENCHYMA, see comment MINIMAL CHRONIC INF LAMMATION PRESENT NO SIGNIFICANT ACUTE INFLAMMATION PRESENT NO ORG ANISMS IDENTIFIED WITH AFB AND GMS STAINS NEGATIVE FOR MALIGNANCY RRB/renée D 80058, 52513, 17913v8 MACROSCOPIC The specimen con sists of four slides for processing. Received in formalin in a container labe led with the patient's name, and identified as "right lung". Very thin needle biopsies of light lowe tissue measuring up to 0.6 cm in length with diameter of less than 0.1 cm are received. The [facility]OSS PERFORMED AT [facility] [address] [place] [address] (P)[phone] MICROSCOPIC All of the stains, including any controls performed, st ain appropriately. MICROSCOPIC PERFORMED AT [facility] [address] [place] [address] (P) PERFORMING SITE Diagnosis performed at: [facility], [place] [address] [facility] CONTINUED ON NEXT PAGE R UN DATE: 09/14/19 [facility] PAGE 3 RUN TIME: 8 Specimen Inquiry RUN USER: INTERFACE SPEC #: [id number] PATIENT: ALIS PITT #[id number] (Continued) PERFORMING SITE (Rolando patterson) [place] [address] Signed SIGN ATURE ON FILE Sahil Goldberg MD 09/14/19 1658 -------- ---- END OF REPORT - CTA CHEST FOR [id number] 14:18:00 Name: ALIS PITT [facility] : 1955 Age/S: 63 / M [address] [facility] Unit #: [id number] Loc: [place] [address] Phys: Guerda John MD Acct: [id number] Donna s Date: Status: ADM IN PHONE #: Exam Date: 09/14/2019 1151 FAX #: [phone] Reason: shortness of breath, bronchopleural fistula EXAMS: CPT CODE: [id number] [place] [id number] REASON FOR EXAM: shortness of breath, bronchopleural fistula EXAM ORDER DATE: 09/14/2019 10 :38 AM Ordering M.D.: Guerda John MD PROCEDURE: - CTA CHEST FOR PE Comparison:Chest radiograph earlier today as well as multiple prior chest radiograph Axial CT images of t he chest were obtained of IV contrast utilizing a PE protocol. Reconstruct ed sagittal and coronal images of the chest were provided for interpretati on. Dose reduction techniques were applied. FINDING S: Visualized neck: Thyroid gland is within normal limits. Visual ized epiglottis and larynx are within normal limits. There is diffuse subcutaneous emphysema. Airways, Lungs and Pleura: There is exte nsive centrilobular emphysematous changes in the upper lobes. The right lo wer lobe is atelectatic and there are mucus bronchograms within the atelec tatic lung suggesting superimposed aspiration. Consolidative and nodular opacities are also present in the left lower lobe and right upper lobe suggesting aspiration and/or infection, however underlying pulmonary nod ules cannot be excluded. There is a right-sided pneumothorax despite the p resence of a chest tube which terminates near the apex of the right lung. Heart, great vessels, pulmonary vessels, mediastinum: There is extensive pneumomediastinum. Mild coronary and aortic atherosclerosis is present. No pulmonary embolus or evidence of right heart strain. No evid ence of pulmonary arterial hypertension. Thoracic aorta is normal in calib er. Cardiac chambers are unremarkable. Lymph nodes: No axillary, i nternal mammary, hilar, or mediastinal adenopathy. Musculosk eletal/chest wall: Mild degenerative changes are present in the spine. The re is extensive subcutaneous emphysema throughout the chest wall in the vi sualized portion of the neck PAGE 1 Signed Report (CONTINUED) Name: ALIS PITT [facility] : 1955 Age/S: 63 / M [address] [facility]: [id number] Loc: [place] [address] Phys: Guerda John MD Acct: [id number] Dis Date: Status: ADM IN PHONE #: [phone] Exam Date: 09/14/2019 1155 FAX #: [phone] Reason: shortness of breath, bronchopleural fistula EXAMS: CPT CODE: [id number] [place] [address] < Continued> Visualized upper abdomen: Grossly normal IMPRESSION: No pulmonary embolus is visualized and no evidence of right heart strain or pulmonary arterial hypertension. Persistent right-sided moderate sized pneumothorax despite the presence of a thoracostomy tube. This may be secondary to a bronchopleural fistula although no discrete fistula is visualized. Atelectasis of the right lower lobe with superimposed aspiration. Consolidative and nodular opacities in the left lower lobe and right upper lobe may represent additional foci of infection however underlying nodules cannot be excluded. Follow-up imaging in 8-12 weeks is recommended to assess for resolution. Severe centrilobular emphysematous changes in the bilateral upper lobes. Extensive subcutaneous emphysema throughout the chest wall and in the visualized portion of the neck. Location: [facility] at 1418 Reported and signed by: Venancio Sawyer MD CC: Buddy Mcdonald MD; Alvin Etienne MD; Guerda John MD; Jaspal Granados; Ubaldo Lion MD Technologist:Zia Esquivel RT(R)(CT) CTDI: DLP: Trnscb Date/Time: 09/14/2019 (1418) t.[email or web address] Orig Print D/T: S: 09/14/2019 (4075) PAGE 2 Signed Report - XR CHEST 1 [id number] 06:25:00 FAX: Buddy Reilly MD [place]: B St: [facility] FAX: Alvin Troncoso MD [phone] FAX: Jaspal Arambula [phone] FAX: Ubaldo Fish [phone] Name: Papi PITT [facility] : 1955 Age/S: 63/M Mer[address]va[address] Unit #: [id number] Loc: V.S [address] [place] [address] Phys: Alvin Etienne MD Acct: [id number] Dis Date: Status: ADM IN PHONE #: [phone] Exam D ate: 09/14/2019 0534 FAX #: [phone] Reason: p neumothorax EXAMS: CPT CODE: [id number] XR CHEST 1 V 17068 CLINICAL HISTORY: Pneumothorax with pneumoth orax TECHNIQUE: AP chest x-ray COMPARISON: Previous day. IMPRESSION: Right chest tube in stable po sition without evident pneumothorax. Increased bibasilar atelectasis. No pleural effusion. No mediastinal shift. Pneumomediastinum. Normal heart size. Bilateral neck and chest soft tissue emphysema. LOCATION: [facility] at 0625 Reported and signed by: Tori John D.O. CC: Buddy Mcdonald MD; Alvin Etienne MD; Jaspal Granados; Ubaldo Lion MD Technologist: NGOC Rodríguez Trnscrd Date/Time/By: 09/14/2019 (0625) : By: [email or web address] Orig Print D/T: S: 09/14/2019 (0628) PAGE 1 Signed Report BASIC METABOLIC PANEL 2019-09-14 05:12:00* Test Item Value Reference Range Comments SODIUM (test code=NA) 145 mmol/L 136-145 POTASSIUM (test code=K) 4.1 mmol/L 3.5-5.1 CHLORIDE (test code=CL) 108.0 mmol/L 98-107 CARBON DIOXIDE (test code=CO2) 30.0 mmol/L 21-32 ANION GAP (test code=GAP) 11.1 10-20 GLUCOSE (test code=GLU) 109 mg/dL 74-106 BLOOD UREA NITROGEN (test code=BUN) 15 mg/dL 7-18 GLOMERULAR FILTRATION RATE (test code=GFR) > 60 mL/min >=60 Estimated GFR by using Modified MDRD formula.Chronic kidney disease is defined as either kidney damageor GFR <60 mL/min/1.73 m2 for >3 months. CREATININE (test code=CREAT) 1.00 mg/dL 0.7-1.3 BUN/CREATININE RATIO (test code=BUN/CREA) 15.5 10-20 CALCIUM (test code=CA) 8.7 mg/dL 8.5-10.1 [id number] 05:12:00* Test Item Value Reference Range Comments PHOSPHORUS (test code=PHOS) 3.5 mg/dL 2.5-4.9 [id number] 05:12:00* Test Item Value Reference Range Comments MAGNESIUM (test code=MAG) 2.1 mg/dL 1.8-2.4 BASIC METABOLIC [id number] 05:03:00* Test Item Value Reference Range Comments SODIUM (test code=NA) 145 mmol/L 136-145 POTASSIUM (test code=K) 4.1 mmol/L 3.5-5.1 CHLORIDE (test code=CL) 108.0 mmol/L 98-107 CARBON DIOXIDE (test code=CO2) mmol/L 21-32 ANION GAP (test code=GAP) 10-20 GLUCOSE (test code=GLU) mg/dL 74-106 BLOOD UREA NITROGEN (test code=BUN) mg/dL 7-18 GLOMERULAR FILTRATION RATE (test code=GFR) mL/min >=60 CREATININE (test code=CREAT) mg/dL 0.7-1.3 BUN/CREATININE RATIO (test code=BUN/CREA) 10-20 CALCIUM (test code=CA) mg/dL 8.5-10.1 [id number] 05:03:00* Test Item Value Reference Range Comments PHOSPHORUS (test code=PHOS) mg/dL 2.5-4.9 [id number] 05:03:00* Test Item Value Reference Range Comments MAGNESIUM (test code=MAG) mg/dL 1.8-2.4 CBC W/AUTO [id number] 04:58:00* Test Item Value Reference Range Comments WHITE BLOOD CELL (test code=WBC) 8.1 K/mm3 4.5-12.5 RED BLOOD CELL (test code=RBC) 4.20 mill/mm3 4.0-5.8 HEMOGLOBIN (test code=HGB) 11.7 gram/dL 13.0-17.5 HEMATOCRIT (test code=HCT) 35.6 % 42.0-52.0 MEAN CELL VOLUME (test code=MCV) 84.8 fL 80-98 MEAN CELL HGB (test code=MCH) 27.9 picogram 27.0-33.0 MEAN CELL HGB CONCETRATION (test code=MCHC) 32.9 gram/dL 33.0-36.0 RED CELL DISTRIBUTION WIDTH (test code=RDW) 14.5 % 11.6-16.2 RED CELL DISTRIBUTION WIDTH SD (test code=RDW-SD) 44.8 fL 37.0-51.0 PLATELET COUNT (test code=PLT) 307 K/mm3 150-450 MEAN PLATELET VOLUME (test code=MPV) 10.1 fL 6.7-11.0 NEUTROPHIL % (test code=NT%) 80.7 % 39.0-69.0 IMMATURE GRANULOCYTE % (test code=IG%) 0.2 % 0.0-5.0 LYMPHOCYTE % (test code=LY%) 12.1 % 25.0-55.0 MONOCYTE % (test code=MO%) 5.7 % 0.0-10.0 EOSINOPHIL % (test code=EO%) 1.2 % 0.0-5.0 BASOPHIL % (test code=BA%) 0.1 % 0.0-1.0 NUCLEATED RBC % (test code=NRBC%) 0.0 % 0-0 NEUTROPHIL # (test code=NT#) 6.50 K/mm3 1.8-7.7 IMMATURE GRANULOCYTE # (test code=IG#) 0.02 x10 3/uL 0-0.03 LYMPHOCYTE # (test code=LY#) 0.98 K/mm3 1.0-5.0 MONOCYTE # (test code=MO#) 0.46 K/mm3 0-0.8 EOSINOPHIL # (test code=EO#) 0.10 K/mm3 0.0-0.5 BASOPHIL # (test code=BA#) 0.01 K/mm3 0.0-0.2 NUCLEATED RBC # (test code=NRBC#) 0.00 K/mm3 0.0-0.1 MANUAL DIFF REQUIRED (test code=MDIFF) NO - XR CHEST 1 [id number] 07:34:00 FAX: Buddy Reilly MD [place]: B St: ADM FAX: Marli Pitts SHARON [phone] FAX: Alvin Troncoso MD [phone] FAX: Jaspal Arambula [phone] FAX: Ubaldo Fish [phone] Name: ALIS PITT [facility] : 1955 Age/S: 63/M [address] Unit #: [id number] Loc: V.S17 [place] [address] Phys: Tierra Pittsjanette HERRERA Acct: [id number] Dis Date: Status: ADM IN PHONE #: [phone] Exam Date: 09/13/2019512 FAX #: [phone] Reason: chest tube EXAMS: CPT CODE: [id number] XR CHEST 1 V 13390 CLINICAL HISTORY: Pneumothorax with chest tube TECHNIQUE: AP chest x-ray COMPARISON: Previous day. IMPRESSION: No significant interval change. Right chest tube in stable position with small right apical pneumothorax. Bibasilar subsegmental atelectasis. No pleural effusion. No mediastinal shift. Pneumomedias tinum. Normal heart size. Bilateral neck and chest soft tissue emphysema . LOCATION: [facility] Elec tronically Signed by Tori John D.O. on 09/13/2019 at 0734 Reported and signed by: Tori John D.O. CC: Buddy Mcdonald MD; Marli Pitts NP; Alvin Etienne MD; Jaspal Granados; Ubaldo Lion MD Technologist: NGOC person Trnscrd Date/Time/By: 09/13/2019 (0734) : By: Ana [email or web address] PAGE 1 Signed Report BASIC METABOLIC [id number] 05:51:00* Test Item Value Reference Range Comments SODIUM (test code=NA) 142 mmol/L 136-145 POTASSIUM (test code=K) 3.9 mmol/L 3.5-5.1 CHLORIDE (test code=CL) 106.0 mmol/L 98-107 CARBON DIOXIDE (test code=CO2) 30.0 mmol/L 21-32 ANION GAP (test code=GAP) 9.9 10-20 GLUCOSE (test code=GLU) 108 mg/dL 74-106 BLOOD UREA NITROGEN (test code=BUN) 19 mg/dL 7-18 GLOMERULAR FILTRATION RATE (test code=GFR) > 60 mL/min >=60 Estimated GFR by using Modified MDRD formula.Chronic kidney disease is defined as either kidney damageor GFR <60 mL/min/1.73 m2 for >3 months. CREATININE (test code=CREAT) 1.10 mg/dL 0.7-1.3 BUN/CREATININE RATIO (test code=BUN/CREA) 16.7 10-20 CALCIUM (test code=CA) 9.2 mg/dL 8.5-10.1 [id number] 05:51:00* Test Item Value Reference Range Comments PHOSPHORUS (test code=PHOS) 3.4 mg/dL 2.5-4.9 [id number] 05:51:00* Test Item Value Reference Range Comments MAGNESIUM (test code=MAG) 2.0 mg/dL 1.8-2.4 BASIC METABOLIC [id number] 05:40:00* Test Item Value Reference Range Comments SODIUM (test code=NA) 142 mmol/L 136-145 POTASSIUM (test code=K) 3.9 mmol/L 3.5-5.1 CHLORIDE (test code=CL) 106.0 mmol/L 98-107 CARBON DIOXIDE (test code=CO2) mmol/L 21-32 ANION GAP (test code=GAP) 10-20 GLUCOSE (test code=GLU) mg/dL 74-106 BLOOD UREA NITROGEN (test code=BUN) mg/dL 7-18 GLOMERULAR FILTRATION RATE (test code=GFR) mL/min >=60 CREATININE (test code=CREAT) mg/dL 0.7-1.3 BUN/CREATININE RATIO (test code=BUN/CREA) 10-20 CALCIUM (test code=CA) mg/dL 8.5-10.1 [id number] 05:40:00* Test Item Value Reference Range Comments PHOSPHORUS (test code=PHOS) mg/dL 2.5-4.9 [id number] 05:40:00* Test Item Value Reference Range Comments MAGNESIUM (test code=MAG) mg/dL 1.8-2.4 CBC W/AUTO [id number] 05:14:00* Test Item Value Reference Range Comments WHITE BLOOD CELL (test code=WBC) 9.0 K/mm3 4.5-12.5 RED BLOOD CELL (test code=RBC) 4.52 mill/mm3 4.0-5.8 HEMOGLOBIN (test code=HGB) 12.6 gram/dL 13.0-17.5 HEMATOCRIT (test code=HCT) 38.2 % 42.0-52.0 MEAN CELL VOLUME (test code=MCV) 84.5 fL 80-98 MEAN CELL HGB (test code=MCH) 27.9 picogram 27.0-33.0 MEAN CELL HGB CONCETRATION (test code=MCHC) 33.0 gram/dL 33.0-36.0 RED CELL DISTRIBUTION WIDTH (test code=RDW) 14.6 % 11.6-16.2 RED CELL DISTRIBUTION WIDTH SD (test code=RDW-SD) 45.0 fL 37.0-51.0 PLATELET COUNT (test code=PLT) 304 K/mm3 150-450 MEAN PLATELET VOLUME (test code=MPV) 10.0 fL 6.7-11.0 NEUTROPHIL % (test code=NT%) 76.3 % 39.0-69.0 IMMATURE GRANULOCYTE % (test code=IG%) 0.4 % 0.0-5.0 LYMPHOCYTE % (test code=LY%) 16.1 % 25.0-55.0 MONOCYTE % (test code=MO%) 5.9 % 0.0-10.0 EOSINOPHIL % (test code=EO%) 1.3 % 0.0-5.0 BASOPHIL % (test code=BA%) 0.0 % 0.0-1.0 NUCLEATED RBC % (test code=NRBC%) 0.0 % 0-0 NEUTROPHIL # (test code=NT#) 6.85 K/mm3 1.8-7.7 IMMATURE GRANULOCYTE # (test code=IG#) 0.04 x10 3/uL 0-0.03 LYMPHOCYTE # (test code=LY#) 1.45 K/mm3 1.0-5.0 MONOCYTE # (test code=MO#) 0.53 K/mm3 0-0.8 EOSINOPHIL # (test code=EO#) 0.12 K/mm3 0.0-0.5 BASOPHIL # (test code=BA#) 0.00 K/mm3 0.0-0.2 NUCLEATED RBC # (test code=NRBC#) 0.00 K/mm3 0.0-0.1 MANUAL DIFF REQUIRED (test code=MDIFF) NO BASIC METABOLIC [id number] 08:20:00* Test Item Value Reference Range Comments SODIUM (test code=NA) 143 mmol/L 136-145 POTASSIUM (test code=K) 4.0 mmol/L 3.5-5.1 CHLORIDE (test code=CL) 108.0 mmol/L 98-107 CARBON DIOXIDE (test code=CO2) 30.0 mmol/L 21-32 ANION GAP (test code=GAP) 9.0 10-20 GLUCOSE (test code=GLU) 106 mg/dL 74-106 BLOOD UREA NITROGEN (test code=BUN) 16 mg/dL 7-18 GLOMERULAR FILTRATION RATE (test code=GFR) > 60 mL/min >=60 Estimated GFR by using Modified MDRD formula.Chronic kidney disease is defined as either kidney damageor GFR <60 mL/min/1.73 m2 for >3 months. CREATININE (test code=CREAT) 1.10 mg/dL 0.7-1.3 BUN/CREATININE RATIO (test code=BUN/CREA) 14.0 10-20 CALCIUM (test code=CA) 8.7 mg/dL 8.5-10.1 [id number] 08:20:00* Test Item Value Reference Range Comments PHOSPHORUS (test code=PHOS) 2.9 mg/dL 2.5-4.9 [id number] 08:20:00* Test Item Value Reference Range Comments MAGNESIUM (test code=MAG) 2.1 mg/dL 1.8-2.4 BASIC METABOLIC [id number] 08:12:00* Test Item Value Reference Range Comments SODIUM (test code=NA) 143 mmol/L 136-145 POTASSIUM (test code=K) 4.0 mmol/L 3.5-5.1 CHLORIDE (test code=CL) 108.0 mmol/L 98-107 CARBON DIOXIDE (test code=CO2) mmol/L 21-32 ANION GAP (test code=GAP) 10-20 GLUCOSE (test code=GLU) mg/dL 74-106 BLOOD UREA NITROGEN (test code=BUN) mg/dL 7-18 GLOMERULAR FILTRATION RATE (test code=GFR) mL/min >=60 CREATININE (test code=CREAT) mg/dL 0.7-1.3 BUN/CREATININE RATIO (test code=BUN/CREA) 10-20 CALCIUM (test code=CA) mg/dL 8.5-10.1 [id number] 08:12:00* Test Item Value Reference Range Comments PHOSPHORUS (test code=PHOS) mg/dL 2.5-4.9 [id number] 08:12:00* Test Item Value Reference Range Comments MAGNESIUM (test code=MAG) mg/dL 1.8-2.4 - XR CHEST 1 [id number] 07:49:00 FAX: Buddy Reilly MD [place]: B St: ADM FAX: Alvin Troncoso MD [phone] FAX: Jaspal Arambula [phone] FAX: Ubaldo Fish [phone] Name: Papi PITT [facility] : 1955 Age/S: 63/M [place] Unit #: [id number] Loc: [place] [address] Phys: Alvin Etienne MD Acct: [id number] Dis Date: Status: ADM IN PHONE #: [phone] Exam D ate: 09/12/2019 0505 FAX #: [phone] Reason: p neumothorax EXAMS: CPT CODE: [id number] XR CHEST 1 V 38045 REASON FOR EXAM: pneumothorax Exam Order Date: 09/12/2019 6:00 AM Ordering MLinus: Alvin Eteinne MD PROCEDURE: - XR CHEST 1 V COMPARISON: Frontal chest x-ray the previous morning FINDINGS: There i s extensive subcutaneous emphysema throughout the chest. This emphysema li mits evaluation of subtle cardiopulmonary abnormalities. There is a small right apical pneumothorax (less than 10% of the lung volumes) desp ite the presence of a thoracostomy tube. There is also subsegmental atelec tasis in the lung bases. The cardiomediastinal silhouette is chantal l in size. IMPRESSION: Right apical pneumothorax despite the presence of a thoracostomy tube. This appears similar to the prior exam. Location: [facility] at 0749 Reported and signed by: Venancio Sawyer MD CC: Buddy Mcdonald MD; Alvin Etienne MD; Jaspal Sanders; Ubaldo Lion MD Technologist: Jeet Snell RT(R); LOYD ESCALANTE RT(R) Trnscrd Date/Time/By: 09/12/2019 (0749) : By: [email or web address] Orig Print D/ T: S: 09/12/2019 (0752) PAGE 1 Si gned Report CBC W/AUTO [id number] 04:54:00* Test Item Value Reference Range Comments WHITE BLOOD CELL (test code=WBC) 8.1 K/mm3 4.5-12.5 RED BLOOD CELL (test code=RBC) 4.40 mill/mm3 4.0-5.8 HEMOGLOBIN (test code=HGB) 12.2 gram/dL 13.0-17.5 HEMATOCRIT (test code=HCT) 38.0 % 42.0-52.0 MEAN CELL VOLUME (test code=MCV) 86.4 fL 80-98 MEAN CELL HGB (test code=MCH) 27.7 picogram 27.0-33.0 MEAN CELL HGB CONCETRATION (test code=MCHC) 32.1 gram/dL 33.0-36.0 RED CELL DISTRIBUTION WIDTH (test code=RDW) 14.8 % 11.6-16.2 RED CELL DISTRIBUTION WIDTH SD (test code=RDW-SD) 46.8 fL 37.0-51.0 PLATELET COUNT (test code=PLT) 301 K/mm3 150-450 MEAN PLATELET VOLUME (test code=MPV) 10.5 fL 6.7-11.0 NEUTROPHIL % (test code=NT%) 75.9 % 39.0-69.0 IMMATURE GRANULOCYTE % (test code=IG%) 0.2 % 0.0-5.0 LYMPHOCYTE % (test code=LY%) 16.6 % 25.0-55.0 MONOCYTE % (test code=MO%) 5.3 % 0.0-10.0 EOSINOPHIL % (test code=EO%) 1.8 % 0.0-5.0 BASOPHIL % (test code=BA%) 0.2 % 0.0-1.0 NUCLEATED RBC % (test code=NRBC%) 0.0 % 0-0 NEUTROPHIL # (test code=NT#) 6.17 K/mm3 1.8-7.7 IMMATURE GRANULOCYTE # (test code=IG#) 0.02 x10 3/uL 0-0.03 LYMPHOCYTE # (test code=LY#) 1.35 K/mm3 1.0-5.0 MONOCYTE # (test code=MO#) 0.43 K/mm3 0-0.8 EOSINOPHIL # (test code=EO#) 0.15 K/mm3 0.0-0.5 BASOPHIL # (test code=BA#) 0.02 K/mm3 0.0-0.2 NUCLEATED RBC # (test code=NRBC#) 0.00 K/mm3 0.0-0.1 CBC W/AUTO [id number] 16:15:00* Test Item Value Reference Range Comments WHITE BLOOD CELL (test code=WBC) 8.9 K/mm3 4.5-12.5 RED BLOOD CELL (test code=RBC) 4.40 mill/mm3 4.0-5.8 HEMOGLOBIN (test code=HGB) 12.2 gram/dL 13.0-17.5 HEMATOCRIT (test code=HCT) 37.9 % 42.0-52.0 MEAN CELL VOLUME (test code=MCV) 86.1 fL 80-98 MEAN CELL HGB (test code=MCH) 27.7 picogram 27.0-33.0 MEAN CELL HGB CONCETRATION (test code=MCHC) 32.2 gram/dL 33.0-36.0 RED CELL DISTRIBUTION WIDTH (test code=RDW) 14.6 % 11.6-16.2 RED CELL DISTRIBUTION WIDTH SD (test code=RDW-SD) 46.3 fL 37.0-51.0 PLATELET COUNT (test code=PLT) 275 K/mm3 150-450 MEAN PLATELET VOLUME (test code=MPV) 9.2 fL 6.7-11.0 NEUTROPHIL % (test code=NT%) 77.9 % 39.0-69.0 IMMATURE GRANULOCYTE % (test code=IG%) 0.3 % 0.0-5.0 LYMPHOCYTE % (test code=LY%) 14.9 % 25.0-55.0 MONOCYTE % (test code=MO%) 5.1 % 0.0-10.0 EOSINOPHIL % (test code=EO%) 1.7 % 0.0-5.0 BASOPHIL % (test code=BA%) 0.1 % 0.0-1.0 NUCLEATED RBC % (test code=NRBC%) 0.0 % 0-0 NEUTROPHIL # (test code=NT#) 6.89 K/mm3 1.8-7.7 IMMATURE GRANULOCYTE # (test code=IG#) 0.03 x10 3/uL 0-0.03 LYMPHOCYTE # (test code=LY#) 1.32 K/mm3 1.0-5.0 MONOCYTE # (test code=MO#) 0.45 K/mm3 0-0.8 EOSINOPHIL # (test code=EO#) 0.15 K/mm3 0.0-0.5 BASOPHIL # (test code=BA#) 0.01 K/mm3 0.0-0.2 NUCLEATED RBC # (test code=NRBC#) 0.00 K/mm3 0.0-0.1 MANUAL DIFF REQUIRED (test code=MDIFF) NO BASIC METABOLIC [id number] 08:33:00* Test Item Value Reference Range Comments SODIUM (test code=NA) 140 mmol/L 136-145 POTASSIUM (test code=K) 3.8 mmol/L 3.5-5.1 CHLORIDE (test code=CL) 107.0 mmol/L 98-107 CARBON DIOXIDE (test code=CO2) 27.0 mmol/L 21-32 ANION GAP (test code=GAP) 9.8 10-20 GLUCOSE (test code=GLU) 121 mg/dL 74-106 BLOOD UREA NITROGEN (test code=BUN) 16 mg/dL 7-18 GLOMERULAR FILTRATION RATE (test code=GFR) > 60 mL/min >=60 Estimated GFR by using Modified MDRD formula.Chronic kidney disease is defined as either kidney damageor GFR <60 mL/min/1.73 m2 for >3 months. CREATININE (test code=CREAT) 1.10 mg/dL 0.7-1.3 BUN/CREATININE RATIO (test code=BUN/CREA) 15.0 10-20 CALCIUM (test code=CA) 8.8 mg/dL 8.5-10.1 COMPREHENSIVE METABOLIC [id number] 08:33:00* Test Item Value Reference Range Comments TOTAL PROTEIN (test code=PROT) 7.1 gram/dL 6.4-8.2 ALBUMIN (test code=ALB) 3.6 g/dL 3.4-5.0 GLOBULIN (test code=GLOB) 3.5 gram/dL 2.7-4.2 ALBUMIN/GLOBULIN RATIO (test code=A/G) 1.0 0.75-1.50 BILIRUBIN TOTAL (test code=BILT) 0.40 mg/dL 0.0-1.0 SGOT/AST (test code=AST) 27 IUnit/L 15-37 SGPT/ALT (test code=ALT) 34 IUnit/L 12-78 ALKALINE PHOSPHATASE TOTAL (test code=ALKP) 78 IUnit/L 45-117 Note change in reference range due to change in reagent. [id number] 08:33:00* Test Item Value Reference Range Comments PHOSPHORUS (test code=PHOS) 2.4 mg/dL 2.5-4.9 [id number] 08:33:00* Test Item Value Reference Range Comments MAGNESIUM (test code=MAG) 1.9 mg/dL 1.8-2.4 CALCIUM [id number] 08:33:00* Test Item Value Reference Range Comments CALCIUM IONIZED (test code=DEBORAH) 1.22 mmol/L 1.12-1.32 BASIC METABOLIC [id number] 08:24:00* Test Item Value Reference Range Comments SODIUM (test code=NA) 140 mmol/L 136-145 POTASSIUM (test code=K) 3.8 mmol/L 3.5-5.1 CHLORIDE (test code=CL) 107.0 mmol/L 98-107 CARBON DIOXIDE (test code=CO2) mmol/L 21-32 ANION GAP (test code=GAP) 10-20 GLUCOSE (test code=GLU) mg/dL 74-106 BLOOD UREA NITROGEN (test code=BUN) mg/dL 7-18 GLOMERULAR FILTRATION RATE (test code=GFR) mL/min >=60 CREATININE (test code=CREAT) mg/dL 0.7-1.3 BUN/CREATININE RATIO (test code=BUN/CREA) 10-20 CALCIUM (test code=CA) mg/dL 8.5-10.1 COMPREHENSIVE METABOLIC [id number] 08:24:00* Test Item Value Reference Range Comments TOTAL PROTEIN (test code=PROT) gram/dL 6.4-8.2 ALBUMIN (test code=ALB) g/dL 3.4-5.0 GLOBULIN (test code=GLOB) gram/dL 2.7-4.2 ALBUMIN/GLOBULIN RATIO (test code=A/G) 0.75-1.50 BILIRUBIN TOTAL (test code=BILT) mg/dL 0.0-1.0 SGOT/AST (test code=AST) IUnit/L 15-37 SGPT/ALT (test code=ALT) IUnit/L 12-78 ALKALINE PHOSPHATASE TOTAL (test code=ALKP) IUnit/L 45-117 [id number] 08:24:00* Test Item Value Reference Range Comments PHOSPHORUS (test code=PHOS) mg/dL 2.5-4.9 [id number] 08:24:00* Test Item Value Reference Range Comments MAGNESIUM (test code=MAG) mg/dL 1.8-2.4 CALCIUM [id number] 08:24:00* Test Item Value Reference Range Comments CALCIUM IONIZED (test code=DEBORAH) 1.22 mmol/L 1.12-1.32 BASIC METABOLIC [id number] 08:18:00* Test Item Value Reference Range Comments SODIUM (test code=NA) mmol/L 136-145 POTASSIUM (test code=K) mmol/L 3.5-5.1 CHLORIDE (test code=CL) mmol/L 98-107 CARBON DIOXIDE (test code=CO2) mmol/L 21-32 ANION GAP (test code=GAP) 10-20 GLUCOSE (test code=GLU) mg/dL 74-106 BLOOD UREA NITROGEN (test code=BUN) mg/dL 7-18 GLOMERULAR FILTRATION RATE (test code=GFR) mL/min >=60 CREATININE (test code=CREAT) mg/dL 0.7-1.3 BUN/CREATININE RATIO (test code=BUN/CREA) 10-20 CALCIUM (test code=CA) mg/dL 8.5-10.1 COMPREHENSIVE METABOLIC [id number] 08:18:00* Test Item Value Reference Range Comments TOTAL PROTEIN (test code=PROT) gram/dL 6.4-8.2 ALBUMIN (test code=ALB) g/dL 3.4-5.0 GLOBULIN (test code=GLOB) gram/dL 2.7-4.2 ALBUMIN/GLOBULIN RATIO (test code=A/G) 0.75-1.50 BILIRUBIN TOTAL (test code=BILT) mg/dL 0.0-1.0 SGOT/AST (test code=AST) IUnit/L 15-37 SGPT/ALT (test code=ALT) IUnit/L 12-78 ALKALINE PHOSPHATASE TOTAL (test code=ALKP) IUnit/L 45-117 [id number] 08:18:00* Test Item Value Reference Range Comments PHOSPHORUS (test code=PHOS) mg/dL 2.5-4.9 [id number] 08:18:00* Test Item Value Reference Range Comments MAGNESIUM (test code=MAG) mg/dL 1.8-2.4 CALCIUM [id number] 08:18:00* Test Item Value Reference Range Comments CALCIUM IONIZED (test code=DEBORAH) 1.22 mmol/L 1.12-1.32 - XR CHEST 1 [id number] 05:26:00 FAX: Buddy Reilly MD [place]: B St: ADM FAX: Alvin Troncoso MD [phone] FAX: Jaspal Arambula [phone] FAX: Ubaldo Fish [phone] Name: Papi PITT [facility] : 1955 Age/S: 63/M [address] [facility] #: [id number] Loc: V[address] [place] [address] Phys: Alvin Etienne MD Acct: [id number] Dis Date: Status: ADM IN PHONE #: [phone] Exam D ate: 09/11/2019 0445 FAX #: [phone] Reason: p neumothorax EXAMS: CPT CODE: [id number] XR CHEST 1 V 01799 Exam: Chest portable erect Loc ation: H 12 History: pneumothorax Comparison: 2018 Findings: Subcutaneous emphysema persists. A large bor e chest tube remains in place on the right. No change has occurred in the aeration of the lungs. The heart size is unchanged. The mediastinal silhou ette is unremarkable. The bony thorax is intact. Impressi on: Stable chest/no change. at 0526 Reported and signed by: Leena Alejandre CC: Buddy Mcdonald MD; Alvin Etienne MD; Jaspal Granados; Ubaldo Lion MD Technologist: Jeet LOWE(R) Trnscrd Nam ate/Time/By: 09/11/2019 (0526) : By: Cayden Orig Print D/T: S: 08/27 (0914) PAGE 1 Signed Repor t - XR CHEST 1 [id number] 03:46:00 FAX: Rylan Meza [phone] [place]: B St: ADM FAX: Buddy Reilly MD FAX: Alvin Troncoso MD FAX: Gallito CamposJaspal blanchard [phone] FAX: Gallito Elena moiraUbaldojimmie Moulton [phone] Name: ALIS PITT [facility] : 1955 Age/S: 63/M [address] Unit #: [id number] Loc: V.S[address] [place] [address] Phys: Rylan Meza Acct: [id number] Dis Date: Status: ADM IN PHONE #: [phone] Exam Date: 09/11/2019 0145 FAX #: [phone] Reason: RIGHT SIDED CHEST TUBE DISLODGEMENT Report Has Been Amended EXAMS: CPT CODE: [id number] XR CHEST 1 V 07622 Addendum - 09/11/2019 SIGNED 09/11/2019 ADDENDUM: [id number] RAD/CXR1 ADDENDUM: Findings reported to nurse Terrie on 09/11/2019 2:30 AM. at 0346 Reported and signed by: Mateo Plata MD Transcribed: 09/11/2019 (7266) [email or web address] Report R16 EXAM: - XR CHEST 1 V HISTORY: RIGHT SIDED CHEST TUBE DISLODGEMENT COMPARISON: 09/10/2019 FINDINGS: Interval removal of right pleural catheter. Redevelopment of large right pneumothorax. Extensive subcutaneous emphysema again noted throughout the right chest wall. Patchy airspace opacities throughout the right lung. No pleural effusion. The cardiac silhouette is within normal limits. No acute osseous abnormalities. IMPRESSION: Redevelopment of large right pneumothorax. at 0201 Reported and signed by: Mateo Plata MD PAGE 1 Signed Report (CONTINUED) FAX: Rylan Meza [phone] [place]: B St: A DM FAX: Buddy Reilly MD FAX: Alvin Troncoso MD [phone] FAX: Jaspal Arambula [phone] FAX: Ubaldo Fish [phone] Name: ALIS PITT [facility] : 1955 Age/S: 63/M [address] [facility] Unit #: [id number] Loc: [address] [address] Phys: Rylan Meza Acct: [id number] Dis Date: Status: ADM IN PHONE #: [phone] Exam Date: 09/11/2019 0145 FAX #: [phone] Reason: RIGHT SIDED CHEST TUBE DISLODGEMENT Report Has Been Amended EXAMS: CPT CODE: [id number] XR CHEST 1 V 86493 <Continued> CC: Rylan Meza; Buddy Mcdonald MD; Alvin Etienne MD; Jaspal Granados; Ubaldo Lion MD Technologist: Jeet Snell RT(R); LOYD ESCALANTE RT(R) Trnokrd Date/Time/By: 09/11/2019 (020) : By: [email or web address] Orig Print D/T: S: 09/11/2019 (020) PAGE 2 Signed Report - XR CHEST 1 [id number] 02:53:00 FAX: Rylan Meza [phone] [place]: B St: ADM FAX: Buddy Reilly MD FAX: Alvin Troncoso MD [phone] FAX: Jaspal Arambula [phone] FAX: Ubaldo Boone [phone] Name: ALIS PITT [facility] : 1955 Age/S: 63/M [address] Unit #: [id number] Loc: [address] [address] Phys: Rylan Meza Acct: [id number] Dis Date: Status: ADM IN PHONE #: [phone] Exam Date: 09/11/2019228 FAX #: [phone] Reason: post chest tube replacement. EXAMS: CPT CODE: [id number] XR CHEST 1 V 90799 AFTER HOURS SERVICE ON: 09/11/2019 2:52 AM AP Portable Chest Location Code M12 HISTORY: post chest tube replacement. FINDINGS: There is decreasing pneumothorax now nearly imperceptible. Trace lucency is noted in the right lung apex. A new right chest tube is in place. Extensive soft tissue emphysema is again noted in the right chest wall, neck base and now extending to the left c hest wall. There is no coronary or pleural effusion. IMPR ESSION: New right chest tube in place. Significant reduction in size of right pneumothorax. Worsening soft tissue emphysema in the chest wall. at 0253 Reported and signed by: Joaquín Tripp M.D. CC: Rylan Meza; Buddy Mcdonald MD; Alvin Etienne MD; Jaspal Granados; Ubaldo Lion MD Technologist: Jeet Snell RT(R) Trnscrd Date/Time/By: (0253) : By: [email or web address] Orig Print D/T: S: 09/11/2019 (0256) PAGE 1 Signed Report - XR CHEST 1 [id number] 02:01:00 FAX: Rylan Meza [phone] [place]: B St: ADM FAX: Buddy Reilly MD FAX: Alvin Troncoso MD [phone] FAX: Jaspal Arambula [phone] FAX: Ubaldo Fish [phone] Name: ALIS PITT [facility] : 1955 Age/S: 63/M [address] Unit #: [id number] Loc: V.[address] [place] [address] Phys: Rylan Meza Acct: [id number] Dis Date: Status: ADM IN PHONE #: [phone] Exam Date: 09/11/2019 014 FAX #: [phone] Reason: RIGHT SIDED CHEST TUBE DISLODGEMENT EXAMS: CPT CODE: [id number] XR CHEST 1 V 16269 R16 EXAM: - XR CHEST 1 V HISTORY: RIGHT SIDED CHEST TUBE DISLODGEMENT COMPARISON: 09/10/2019 FINDINGS: Interval removal of right pleural catheter. Redevelopment of large right pneumothorax. Extensive subcutaneous emphysema again noted thro ughout the right chest wall. Patchy airspace opacities throughout the righ t lung. No pleural effusion. The cardiac silhouette is within normal limit s. No acute osseous abnormalities. IMPRESSION: Red evelopment of large right pneumothorax. at 0201 Reported and signed b y: Mateo Plata MD CC: Rylan Meza; Buddy Mcdonald MD; Alvin Reynaga MD; Jaspal Granados; Ubaldo Lion MD Technologist: Jeet Snell RT(R); LOYD ESCALANTE, RT(R) Trnscrd Date/Time/By: 09/11/2019 (020) : By: [email or web address] Orig Print D/T: S: 09/11/2019 (0209) PAGE 1 Signed Report - SP PERC [id number] 12:27:00 Name: ALIS PITT [facility] : 1955 Age/S: 63 / M [address] [facility] Unit #: [id number] Loc: [place] [address] Phys: Demetri Lion MD Acct: [id number] Di s Date: Status: ADM IN PHONE #: Exam Date: 09/09/2019 1220 FAX #: Reason: EXAMS: CPT CODE: [id number] SP PERC DRAIN 89719 Fluoro Time: DAP (Gy m2): Air Kerma (mGy): REASON FOR EXAM: Right upper lobe lung nodule. PROCEDURE: CT-guided core biopsy of right upper lobe lung nodule Rjld-zi-wghr procedure time is approximately: 1 hour FINDINGS: After informed consent was obtained, the patient was brought to CT and placed supine on the table. All elements of maximal sterile barrier technique were followed. Prior to the biopsy, axial i mages of the chest were obtained without intravenous contrast. Images of the CT were reviewed and the right upper lobe nodule was localized. A saf e pathway was found between the subcutaneous entry site and the right uppe r lobe nodule. The access site was prepped and draped in the usual sterile fashion. A guiding needle was advanced into right upper lobe nodule. After the first attempt, the patient developed a symptomatic pneumothorax. An 8 Kenyan chest tube was placed. The pneumothorax was evacuated. After CT was used to confirmed resolution of the pneumothorax, the lung biopsy proce dure was continue. A guiding needle was advanced in the right lateral ante rior chest wall into the pulmonary lesion. Multiple core biopsies were the n performed using a 20-gauge biopsy gun. Samples were submitted for cytology. The needle was removed and hemostasis obtained. MEDICATI ONS: 2 versed 50 fentanyl COMPLICATIONS: Symptomatic right pneumot horax Blood loss: Less than 5 mL Fluoroscopic dose:1 041 mGy IMPRESSION: Technically successful CT-guided biopsy of r ight upper lobe nodule. 8 Kenyan chest tube placed for treatment of symp tomatic pneumothorax. at 1227 Reported and signed by: Saige Cantu CC: Alvin Etienne MD; Jaspal Granados; Ubaldo Lion MD Technologis t: Radha Marion Trnokb Date/Time: 08/27 (9314) [email or web address] Orig Print D/T: S: 09/10/2019 (12 91) PAGE 1 Signed Report - XR CHEST 1 [id number] 11:49:00 FAX: Buddy Reilly MD [place]: B St: ADM FAX: Alvin Troncoso MD [phone] FAX: Jaspal Arambula [phone] FAX: Ubaldo Fish [phone] Name: Papi PITTALLIE LOZANO [facility] : 1955 Age/S: 63/M [address] [facility] Unit #: [id number] Loc: [address] [place] [address] Phys: Buddy Mcdonald MD Acct: [id number] Dis Date: Status: ADM IN PHONE #: [phone] Exam D ate: 09/09/2019 1719 FAX #: [phone] Reason: C HEST TUBE INSRETION EXAMS: CPT CODE: [id number] XR CHEST 1 V 00948 HISTORY: Chest tube insertion. COMPARISON: Same day. Location: [facility]. New right upper chest tube with new 15 % right basal pneumothorax. Subcutaneous bilateral supraclavicular and right chest wall air noted again. No infiltrates or congestion. Cardiac silhouette is normal. IMPRESSION: New right chest tube which is higher than the previous one with new right 15% pneumothorax. at 1149 Reported and signed by: Jesse yates M.D. CC: Buddy Mcdonald MD; Alvin Etienne MD; Jaspal Kaur; Ubaldo Lion MD Technologist: DOMINGO MELCHOR, RT(R) Trnscrd Date/Time/By: 09/10/2019 (1615) : By: [email or web address] Orig Print D/T: S: 09/10/2019 (1345) PAGE 1 Signed Report - XR CHEST 1 [id number] 09:00:00 FAX: Buddy Reilly MD [place]: St: ADM FAX: Alvin Troncoso MD [phone] FAX: Jaspal Arambula FAX: Ubaldo Fish [phone] Name: SWEETIEPapi TACOALLIE BLAKE [facility] : 1955 Age/S: 63/M [address] [facility] Unit #: [id number] Loc: [address] [place] [address] Phys: Alvin Etienne MD Acct: [id number] Dis Date: Status: ADM IN PHONE #: [phone] Exam D ate: 09/10/2019826 FAX #: [phone] Reason: p neumothorax EXAMS: CPT CODE: [id number] XR CHEST 1 V 73309 HISTORY: Pneumothorax. COMPARI SON: Previous day. Location: [facility] Decreasing extensiv e subcutaneous air in the chest wall and axilla. Pneumothorax is not visib le. Pneumomediastinum is is noted. Basal dependent changes. No infiltrates , effusion or congestion. Low-lying right pleural basal pigtail catheter i s barely visible. Cardiomegaly. IMPRESSION: Pn eumothorax is not visible. Low-lying right pleural catheter. Small pneum omediastinum is suspected. Decreasing subcutaneous air. The lungs are cl ear of infiltrates and congestion. at 0900 Reported and signed by: Jesse Lemon M.D. CC: Buddy Mcdonald MD; Alvin Etienne; Jaspal Granados; Ubaldo Lion MD Technologist: NGOC DRUMMOND JR; STUDENT TECHNOLOGIST Trnscrd Date/Time/By: 09/10/2019 (0900) : By: [email or web address] Orig P rint D/T: S: 09/10/2019 (0903) PAGE 1 Signed Report - SP PERC PLEUR DRN W/IMAG 2019-09-10 08:55:00 Name: ALIS PITT [facility] SP : 1955 Age/S: 63 / M [address] [facility] Unit #: [id number] Loc: [place] [address] Phys: Ubaldo Lion MD Acct: [id number] Dis Date: Status: ADM IN PHONE #: [phone] Exam Date: 09/09/2019 1740 FAX #: [phone] Reason: EXAMS: CPT CODE: [id number] SP PERC PLEUR DRN W/IMAG 70631 Fluoro Time: DAP (Gy m2): Air Kerma (mGy): REASON FOR EXAM: Tension right pneumothorax Exam order date: 09/09/2019 5:35 PM PROCEDURE: Right-sided chest tube placement Ordering: MD Lowell Location:[facility] FINDINGS: The patient was brought to special procedures. Prior to the procedure, the x-ray was reviewed. It revealed a large right side pneumothorax with moderate amount of subcutaneous air. The right lateral anterior chest wall was prepped and draped in the usual sterile fashion. All elements of maximal sterile techniques were followed. A 25-gauge hypodermic needle was placed in the right anterior chest wall. An x-ray was obtained to determine the location of the hypodermic needle compared to the pneumothorax. An 18-gauge Chiba needle was advanced parallel to the hypodermic needle into the pleural cavity. Upon aspiration of air, a guidewire was inserted and the tract was dilated to accept a 10 Kenyan chest tube The air was evacuated and the chest tube was connected to a Pleur-evac MEDICATIONS: None COMPLICATIONS: No immediate. Blood loss: less than 5cc IMPRESSION: Technically successful placement of 10 Kenyan chest tube for treatment of right pneumothorax at 0855 Reported and signed by: Arjun Wiley M.D. CC: Alvin Etienne MD; Jaspal Granados; Ubaldo Lion MD Technologist: Laisha Grant RT(R) Trnscb Date/Time: 09/10/2019 (0855) [email or web address] Orig Print D/T: S: 09/10/2019 (0859) PAGE 1 Signed Report - XR CHEST 1 [id number] 19:31:00 FAX: Buddy Reilly MD [place]: B St: [facility] FAX: Alvin Vásquez MD [phone] FAX: Alvin Troncoso MD [phone] FAX: Jaspal Arambula [phone] FAX: Ubaldo Fish [phone] Name: ALIS PITT [facility] : 1955 Age/S: 63/M [address] [facility] Unit #: [id number] Loc: [address] [place] [address] Phys: Alvin Larios MD Acct: [id number] Dis Date: Status: ADM IN PHONE #: [phone] Exam Date: 09/09/2019 191 FAX #: [phone] Reason: CHEST TUBE EXAMS: CPT CODE: [id number] XR CHEST 1 V 36911 EXAM: Chest x-ray, one view; INFORMATION: Tension pneumothorax; IMPRESSION: 1. The right lung has reexpanded after insertion of a new right-sided chest tube. 2. Extensive soft tissue emphysema of the chest and supraclavicular regions. Mediastinal emphysema. Location code: [facility] at 193 Reported and signed by: Ubaldo Lion M.D. CC: Buddy Mcdonald MD; Alvin Larios MD; Alvin Etienne MD; Jaspal Granados; Ubaldo Lion MD Technologist: Roxanna LOWE(R); Yane Choi(R) Trnscrd Date/Time/By: 09/09/2019 (1930) : By: [email or web address] Orig Print D/T: S: 1 11/09/2018 (1934) PAGE 1 Signed Re port - XR CHEST 1 [id number] 19:29:00 FAX: Brenda Mora MD [phone] [place]: St: ADM FAX: Alvin Troncoso MD [phone] FAX: Jaspal Arambula FAX: Ubaldo Fish [phone] Name: Papi PITT BLAKE [facility] : 1955 Age/S: 63/M [address] Unit #: [id number] Loc: [address] [place] [address] Phys: Brenda Ambriz MD Acct: [id number] Dis Date: Status: ADM IN PHONE #: [phone] Exam D ate: 09/09/2019 1708 FAX #: [phone] Reason: S UBCUTANEOUS EMPHYSEMA EXAMS: CPT CODE: [id number] XR CHEST 1 V 38351 EXAM: Chest x-ray, one view; I NFORMATION: Pneumothorax after CT-guided lung biopsy; shortness of breath; IMPRESSION: Deterioration: There is now a large, greater than 30% right-sided pneumothorax despite indwelling small bore chest tube. Extensive soft tissue emphysema which is now extended into the nec k region bilaterally. Location code: [facility] at 1928 Reported and signed by: Ubaldo Lion M.D. CC: Brenda Ambriz MD; Alvin Etienne MD; Jaspal Granados; Ubaldo Lion MD Technologist: LOYD ESCALANTE, RT(R); ... Trnscrd Date/Time/By: 09/09/2019 (1928) : By: AnaGRW Orig Print D/T: S: 09/09/2019 (1932) PAGE 1 Signed Report - XR CHEST 1 [id number] 15:46:00 FAX: Alvin Troncoso MD [phone] [place]: B St: ADM FAX: Jaspal Arambula [phone] FAX: Ubaldo Fish [phone] Name: SWEETIEALISALLIE LOZANO [facility] : 1955 Age/S: 63/M [address] Unit #: [id number] Loc: V.[address] [place] [address] Phys: Arjun Wiley MD Acct: [id number] Dis Date: Status: ADM IN ONE #: [phone] Exam Date: 09/09/2019 1524 FAX #: [phone] Reason: POST CHEST TUBE EXAMS: CPT CODE: [id number] XR CHEST 1 V 98926 EXAM: Chest x- ray, one view; INFORMATION: Right upper lobe lung lesion; pneumoth orax after CT-guided biopsy; status post chest tube placement; FINDINGS: Less than 5% right apical pneumothorax; overall, the right fabiola ng is reexpanded after insertion of a chest tube. A spiculated, nonc alcified nodule is seen in the right midlung field. The left lung is hyper inflated but otherwise clear; no left-sided pneumothorax; no pleural effus ion; Unremarkable cardiomediastinal silhouette. Mild soft tissue emp hysema along the right lateral chest wall and the right axilla. IMPRESSION: 1. Minimal residual right apical pneumothorax after ch est tube placement. 2. Right chest wall emphysema. 3. Sp iculated, noncalcified lesion in the right upper lobe. 4. Underlying LOCKER ATTENDANT D. Location code: [facility] Salvatore munoz Signed by Klaus Lion on 09/09/2019 a t 1546 Reported and signed by: Ubaldo Nieves ch, M.D. CC: Alvin Etienne MD; Jaspal Granados Gerhar d R MD Technologist: MARY MOLINA Trnscrd Da te/Time/By: 09/09/2019 (1546) : By: Girish Orig Print D/T: S: 09/09 (8642) PAGE 1 Signed Report - CT GUID NDL [id number] 12:46:00 Name: ALIS PITT [facility] : 1955 Age/S: 63 / M [address] Unit #: [id number] Loc: [place] [address] Phys: Demetri Lion MD Acct: [id number] Di s Date: Status: PRE SDC PHONE #: Exam Date: 09/09/2019 1234 FAX #: [phone] Reason: CHEST TUBE EXAMS: CPT CODE: [id number] [place] [address] REASON FOR EXAM: Right upper lobe lung nodule. PROCEDURE: CT-guided core biopsy of right upper lobe lung nodule Qbrt-wc-ujzg procedure time is approx imately: 1 hour FINDINGS: After informed consent was obtained, the patient was brought to CT and placed supine on the table. All elements of maximal sterile barrier technique were followed. Prior to the biopsy, axial images of the chest were obtained without intravenous contrast. Images of the CT were reviewed and the right upper lobe nodule was loca lized. A safe pathway was found between the subcutaneous entry site and t he right upper lobe nodule. The access site was prepped and draped in the usual sterile fashion. A guiding needle was advanced into right upper lobe nodule. After the first attempt, the patient developed a symptomatic pneu mothorax. An 8 Kenyan chest tube was placed. The pneumothorax was evacuate d. After CT was used to confirmed resolution of the pneumothorax, the lung biopsy procedure was continue. A guiding needle was advanced in the right lateral anterior chest wall into the pulmonary lesion. Multiple core biop sies were then performed using a 20-gauge biopsy gun. Samples were submitt ed for cytology. The needle was removed and hemostasis obtained. MEDICATIONS: 2 versed 50 fentanyl COMPLICATIONS: Symptomatic right pneumothorax Blood loss: Less than 5 mL Fluoro scopic dose:1041 mGy IMPRESSION: Technically successful CT-guide d biopsy of right upper lobe nodule. 8 Kenyan chest tube placed for uma tment of symptomatic pneumothorax. at 1246 Reported and signed b y: Arjun Wiley M.D. PAGE 1 Signed Report (CONTINUED) Name: ALIS PITT [facility] : 1955 Age/S: 63 / M [address] Unit #: [id number] Loc: [place] [address] Phys: Ubaldo Lion MD Acct: [id number] Dis Date: Status: PRE SDC PHONE #: [phone] Exam Date: 09/09/2019 1234 FAX #: [phone] Reason: CHEST TUBE EXAMS: CPT CODE: [id number] GUID [facility] [address] < Continued> CC: Alvin Etienne MD; Jaspal Granados; Ubaldo Lion MD Technologist:Tyra Esquivel,RT(R),CT CTDI: DLP: Trnscb Date/Time: 09/09/2019 (1246) [email or web address] Orig Print D/T: S: 09/09/2019 (1181) PAGE 2 Signed Report - [id number] 12:46:00 Name: ALIS PITT [facility] : 1955 Age/S: 63 / M [address] [facility] Unit #: [id number] Loc: [place] [id number] Phys: Ubaldo Lion MD Acct: [id number] Dis Date: Status: PRE MOC PHONE #: [phone] Exam Date: 09/09/2019 1233 FAX #: [phone] Reason: LUNG BIOPSY EXAMS: CPT CODE: [id number] CT GUID [facility] [id number] REASON FOR EXAM: Right upper lobe lung nodule. PROCEDURE: CT- guided core biopsy of right upper lobe lung nodule Fmiy-wn-fbwm procedure time is approximately: 1 hour FINDINGS: After informed consent was obtained, the patient was brought to CT and placed supine on the table. All elements of maximal sterile barrier technique were followed. Prior to the biopsy, axial images of the chest were obtained without intravenous contrast. Images of the CT were reviewed and the right upper lobe nodule was localized. A safe pathway was found between the subcutaneous entry site and the right upper lobe nodule. The access site was prepped and draped in the usual sterile fashion. A guiding needle was advanced into right upper lobe nodule. After the first attempt, the patient developed a symptomatic pneumothorax. An 8 Kenyan chest tube was placed. The pneumothorax was evacuated. After CT was used to confirmed resolution of the pneumothorax, the lung biopsy procedure was continue. A guiding needle was advanced in the right lateral anterior chest wall into the pulmonary lesion. Multiple core biopsies were then performed using a 20-gauge biopsy gun. Samples were submitted for cytology. The needle was removed and hemostasis obtained. MEDICATIONS: 2 versed 50 fentanyl COMPLICATIONS: Symptomatic right pneumothorax Blood loss: Less than 5 mL Fluoroscopic dose:1041 mGy IMPRESSION: Technically successful CT-guided biopsy of right upper lobe nodule. 8 Kenyan chest tube placed for treatment of symptomatic pneumothorax. at 8578 Reported and signed by: Arjun Wiley M.D. PAGE 1 Signed Report (CONTINUED) Name: ALIS PITT [facility] : 1955 Age/S: 63 / M [address] [facility] Unit #: [id number] Loc: [place] [address] Phys: Ubaldo Lion MD Acct: [id number] Dis Date: Status: PRE SDC PHONE #: [phone] Exam Date: 09/09/2019 1233 FAX #: [phone] Reason: LUNG BIOPSY EXAMS: CPT CODE: [id number] GUID NDL [facility] [address] < Continued> CC: Alvin Etienne MD; Jaspal Granados; Ubaldo Lion MD Technologist:Tyra EsquivelRT(R),CT CTDI: DLP: Trnscb Date/Time: 09/09/2019 (7256) [email or web address] Orig Print D/T: S: 09/09/2019 (0861) PAGE 2 Signed Report PROTHROMBIN [id number] 15:24:00* Test Item Value Reference Range Comments PROTHROMBIN TIME PATIENT (test code=PTP) 11.2 seconds 9.0-14.0 INTERNATIONAL NORMAL RATIO (test code=INR) 0.9 0.8-1.2 The therapeutic range for oral anticoagulant therapy formost indications is an international normalized ratio (INR)of between 2.0 and 3.0. The recommended therapeutic INRrange for various clinical situations is listed below: Clinical Situation INR range Pulmonary e mbolism treatment (2.0-3.0)Venous thrombosis treatmentVenous thrombosis prophylaxis (high risk surgery)Prevention of systemic embolism from: Acute myocardial infarction Valvular heart disease Atrial fibrillation Mechanical prosthetic heart valves (2.5-3.5) THROMBOPLASTIN TIME [id number] 15:24:00* Test Item Value Reference Range Comments THROMBOPLASTIN TIME PARTIAL (test code=PTT) 35.5 seconds 25.0-36.5 CBC W/AUTO [id number] 15:18:00* Test Item Value Reference Range Comments WHITE BLOOD CELL (test code=WBC) 6.8 K/mm3 4.5-12.5 RED BLOOD CELL (test code=RBC) 4.62 mill/mm3 4.0-5.8 HEMOGLOBIN (test code=HGB) 13.1 gram/dL 13.0-17.5 HEMATOCRIT (test code=HCT) 39.4 % 42.0-52.0 MEAN CELL VOLUME (test code=MCV) 85.3 fL 80-98 MEAN CELL HGB (test code=MCH) 28.4 picogram 27.0-33.0 MEAN CELL HGB CONCETRATION (test code=MCHC) 33.2 gram/dL 33.0-36.0 RED CELL DISTRIBUTION WIDTH (test code=RDW) 14.7 % 11.6-16.2 RED CELL DISTRIBUTION WIDTH SD (test code=RDW-SD) 45.1 fL 37.0-51.0 PLATELET COUNT (test code=PLT) 346 K/mm3 150-450 MEAN PLATELET VOLUME (test code=MPV) 9.9 fL 6.7-11.0 NEUTROPHIL % (test code=NT%) 61.9 % 39.0-69.0 IMMATURE GRANULOCYTE % (test code=IG%) 0.3 % 0.0-5.0 LYMPHOCYTE % (test code=LY%) 24.3 % 25.0-55.0 MONOCYTE % (test code=MO%) 9.0 % 0.0-10.0 EOSINOPHIL % (test code=EO%) 3.9 % 0.0-5.0 BASOPHIL % (test code=BA%) 0.6 % 0.0-1.0 NUCLEATED RBC % (test code=NRBC%) 0.0 % 0-0 NEUTROPHIL # (test code=NT#) 4.18 K/mm3 1.8-7.7 IMMATURE GRANULOCYTE # (test code=IG#) 0.02 x10 3/uL 0-0.03 LYMPHOCYTE # (test code=LY#) 1.64 K/mm3 1.0-5.0 MONOCYTE # (test code=MO#) 0.61 K/mm3 0-0.8 EOSINOPHIL # (test code=EO#) 0.26 K/mm3 0.0-0.5 BASOPHIL # (test code=BA#) 0.04 K/mm3 0.0-0.2 NUCLEATED RBC # (test code=NRBC#) 0.00 K/mm3 0.0-0.1 MANUAL DIFF REQUIRED (test code=MDIFF) NO CBC W/AUTO [id number] 15:09:00* Test Item Value Reference Range Comments WHITE BLOOD CELL (test code=WBC) K/mm3 4.5-12.5 RED BLOOD CELL (test code=RBC) mill/mm3 4.0-5.8 HEMOGLOBIN (test code=HGB) 13.1 gram/dL 13.0-17.5 HEMATOCRIT (test code=HCT) % 42.0-52.0 MEAN CELL VOLUME (test code=MCV) fL 80-98 MEAN CELL HGB (test code=MCH) picogram 27.0-33.0 MEAN CELL HGB CONCETRATION (test code=MCHC) gram/dL 33.0-36.0 RED CELL DISTRIBUTION WIDTH (test code=RDW) % 11.6-16.2 RED CELL DISTRIBUTION WIDTH SD (test code=RDW-SD) fL 37.0-51.0 PLATELET COUNT (test code=PLT) K/mm3 150-450 MEAN PLATELET VOLUME (test code=MPV) fL 6.7-11.0 NEUTROPHIL % (test code=NT%) % 39.0-69.0 IMMATURE GRANULOCYTE % (test code=IG%) % 0.0-5.0 LYMPHOCYTE % (test code=LY%) % 25.0-55.0 MONOCYTE % (test code=MO%) % 0.0-10.0 EOSINOPHIL % (test code=EO%) % 0.0-5.0 BASOPHIL % (test code=BA%) % 0.0-1.0 NEUTROPHIL # (test code=NT#) K/mm3 1.8-7.7 LYMPHOCYTE # (test code=LY#) K/mm3 1.0-5.0 MONOCYTE # (test code=MO#) K/mm3 0-0.8 EOSINOPHIL # (test code=EO#) K/mm3 0.0-0.5 BASOPHIL # (test code=BA#) K/mm3 0.0-0.2 - PULM VENT PERF [id number] 14:55:00 FAX: Alvin Troncoso MD [phone] [place]: St: [facility] FAX: Gallito CamposksJaspal Anthony [phone] Name: ALIS PITT [facility] : 1955 Age/S: 63/M [address] [facility] Unit #: [id number] Loc: [place] [address] Phys: Alvin Etienne MD Acct: [id number] Dis Date: Status: REG CLI PHONE #: [phone] Exam Date: 08/12/2019 1215 FAX #: [phone] Reason: J45.909,J44.9,R09.02, J98.4,R91.1 Report Has Been Amended EXAMS: CPT CODE: [id number] PULM VENT PERF IMAG [id number] Addendum - 08/12/2019 SIGNED 08/12/2019 ADD ENDUM: [id number] NM/PULMVNTPER Quantitative perfusion lung scan was also performed. The left lung contributes 49.4% and the right lung contributes 50.6% of the total ventilation. at 4613 Reported and signed by: Venancio Sawyer MD Transcribed: 08/12/2019 (4411) [email or web address] Report HISTORY: J45.909,J44.9,R09.02,J98.4,R91.1 EXAM: NUCLEAR PULMONARY V/Q SCAN. COMPARISON: None FINDI NGS: Ventilation scan: After the patient was given 10 mCi Xenon 1 33 gas to inhale, posterior images were obtained of the lungs in immediate and washout phases. Homogeneous radiopharmaceutical distribution with symmetric washout bilaterally. Perfusion scan: After intravenous injection of 5.5 mCi TC 99m MAA, static images were obtained over the l ungs in multiple projections. Homogeneous distribution of radiopharmaceuti alean in both lungs without pleural based segmental perfusion defects. Ventilation and perfusion images are matched in the posterior pro jection. IMPRESSION: Modified PIOPED II catego ry: PE absent (normal perfusion) PAGE 1 S igned Report (CONTINUED) FAX: Alvin Troncoso MD [place]: B St: REG FAX: Jaspal Arambula [phone] --- Name: SWEETIEALISALLIE LOZANO [facility] : 1955 Age/S: 63/M [address] [facility] Unit #: [id number] Loc: [place] [address] Phys: Alvin Etienne MD Acct: [id number] Dis Date: Status: REG CLI PHONE #: [phone] Exam Date: 08/12/2019 1215 FAX #: Reason: J45.909,J44.9,R09.02,J98.4,R91.1 Report Has Been Amended EXAMS: CPT CODE: [id number] PULM VENT PERF IMAG 53077 <Continued> at 1319 Reported and signed by: Venancio Sawyer MD CC: Alvin Etienne MD; Jaspal Granados Technologist: Deborah Ayers RT(N) Trnscrd Date/Time/By: 08/12/2019 (2667) : By: [email or web address] Orig Print D/T: S: 08/12/2019 (5346) PAGE 2 Signed Report - PULM VENT PERF [id number] 13:19:00 FAX: Alvin Troncoso MD [phone] [place]: St: REG FAX: Jaspal Arambula [phone] Name: ALIS PITT [facility] : 1955 Age/S: 63/M [address] [facility] Unit #: [id number] Loc: [place] [address] Phys: Alvin Etienne MD Acct: [id number] Dis Date: Status: REG CLI PHONE #: [phone] Exam Date: 08/12/2019 1215 FAX #: [phone] Reason: J45.909,J44.9,R09.02,J98.4,R91.1 EXAMS: CPT CODE: [id number] PULM VENT PERF IMAG 34972 HISTORY: J45.909,J44.9,R09.02,J98.4,R91.1 EXAM: NUCLEAR PULMONARY V/Q SCAN. COMPARISON: None FINDINGS: Ventilation scan: After the patient was given 10 mCi Xenon 133 gas to inhale, posterior images were obtained of the lungs in immediate and washout phases. Homogeneous radiopharmaceutical distribution with symmetric washout bilaterally. Perfusion scan: After intravenous injection of 5.5 mCi TC 99m MAA, static images were obtained over the fabiola ngs in multiple projections. Homogeneous distribution of radiopharmaceutic al in both lungs without pleural based segmental perfusion defects. Ventilation and perfusion images are matched in the posterior proj ection. IMPRESSION: Modified PIOPED II categor y: PE absent (normal perfusion) at 1313 Reported and signed by: Venancio Sawyer MD CC: Alvin Etienne MD; Jaspal Granados Technologist: Deborah Ayers RT(N) Trnscrd Date/Time/By: 08/12/2019 (9146) : By: [email or web address] Orig Print D/ T: S: 08/12/2019 (2494) PAGE 1 Si gned Report - XR CHEST 2 [id number] 11:17:00 FAX: Alvin Troncoso MD [phone] [place]: O St: REG FAX: Jaspal Arambula [phone] Name: ALIS PITT [facility] : 1955 Age/S: 63/M [address] [facility] Unit #: [id number] Loc: [place] [address] Phys: Alvin Etienne MD Acct: [id number] Dis Date: Status: REG CLI PHONE #: [phone] Exam Date: 08/12/2019 1056 FAX #: [phone] Reason: J45.909,J44.9,R09.02, R91.1 EXAMS: CPT CODE: [id number] XR CHEST 2 V 15042 REASON FOR EXAM: J45.909,J44.9,R09.02,R91.1 Exam Order Date: 08/12/2019 10:28 AM Ordering MLinus: Alvin beckman MD PROCEDURE: - XR CHEST 2 V COMPARISON: None FINDINGS: The lungs are hyperinflated with flattening of t he diaphragm. There is also mild subsegmental atelectasis versus scarring in the lung bases. There is parenchymal scarring in the lung apices. There is an opacity in the right midlung that measures 2.5 x 1.2 cm in size. Th ere is no pleural effusion or pneumothorax. Pulmonary vascularity is withi n normal limits. Cardiomediastinal silhouette is normal in s ize for technique. The mediastinal contours are within normal limits. Musculoskeletal structures are within normal limits. The visualized upper abdomen is within normal limits. IMPRE SSION: Right midlung opacity as described above. Further evaluation with a contrast-enhanced CT of the chest is recommended. Hyperinflat ion of both lungs may represent an air-trapping disease. Electronica lly Signed by Venancio Sawyer MD on 08/12/2019 at 1117 Repor chitra and signed by: Venancio Sawyer MD CC: Alvin Etienne MD; Jaspal Granados Technologist: RT Ruben(R) Trnscrd Date/Time/By: 08/12/2019 (1117) : By: [email or web address] [facility] Print D/T: S: 08/12/2019 (1120) PAGE 1 Signed Report ARTERIAL BLOOD [id number] 14:13:00* Test Item Value Reference Range Comments ARTERIAL BLOOD GAS PH (test code=PHA) 7.43 7.35-7.45 ARTERIAL BLOOD GAS PCO2 (test code=PCO2A) 37.2 mm Hg 35-45 ARTERIAL BLOOD GAS PO2 (test code=PO2A) 63.6 mmHg 80-100 BICARBONATE TOTAL HCO3 (test code=HCO3) 24.2 mmol/L 23.0-27.0 BASE EXCESS (test code=BENOIT) 0.2 mmol/L -3.0-5.0 ABG O2 SATURATION (test code=SATA) 92.5 % 90.0-98.0 ABG TYPE (test code=TYPEA) Arterial FIO2 (test code=FIO2A) 21.0 ABG SITE (test code=SITEA) Rt RADIAL ARTERY MODIFIED ALLENS (test code=MODALL) Yes CHECK PERFORMED HEMATOCRIT (test code=HCT/ABG) 40 % 42-52 TOTAL HGB (test code=THB) 13.6 gram/dL 13.0-17.5 HGB O2 SAT (test code=HBOSAT) 91.0 % 94.00-98.00 CARBOXYHEMOGLOBIN (test code=HOHGBT) 1.2 %totalHg 0.5-1.5 METHEMOGLOBIN (test code=METHGB) 0.4 % 0.0-1.50 O2 CONTENT (test code=O2CT) 17.4 % vol 18.0-22.0
== END 2019-10-13 13:00 | disposition home or self-care (01) | DRG 192 ==
LOC: ER 11:48 → ERHOLD 15:32 → MED/SURG2 19:33 → OBSVTOIN 10-12 11:15
PROVIDERS: ADMIT Internal Medicine Cardiovascular Disease; ATTEND Internal Medicine Cardiovascular Disease
DX: J43.9 Emphysema, unspecified (principal); J20.9 Acute bronchitis, unspecified; R09.02 Hypoxemia; J84.10 Pulmonary fibrosis, unspecified; Z99.81 Dependence on supplemental oxygen; M79.2 Neuralgia and neuritis, unspecified
CPT/HCPCS: 36415; 36600; 71046; 80048; 80053; 80061; 82550; 82553; 82805; 83036; 83605; 83880; 84484; 85025; 87040; 93005; 93306; 94640; 96367; 96376; 99284; G0378; J0456; J2270; J2543; J7030

== ENCOUNTER 2021-05-20 16:49 | Emergency (ER) | payer MEDICARE ==
[~2021-05-20] VITALS: Ht 182.9 cm; Wt 78.0 kg
[~2021-05-20 16:49] MED LIST: ACETAMINOPHEN-1 EAC4 PO; DIAZEPAM10 MG PO; DOXAZOSIN MESYLA8 MG PO; DULOXETINE HCL30 MG PO; ETHAMBUTOL HCL400 MG PO; FENOFIBRATE48 MG PO; GABAPENTIN300 MG PO; ISONIAZID300 MG PO; NABUMETONE750 MG; OXCARBAZEPINE600 MG PO; PROAIR HFA INH8.5 GM INH; PYRAZINAMIDE500 MG PO; RIFAMPIN300 MG PO; ROSUVASTATIN CA10 MG PO; SPIRIVA18 MCG INH; SYMBICORT 16010.2 GM INH; VITAMIN B-650 MG PO
== END 2021-05-20 19:38 | disposition home or self-care (01) ==
LOC: ER 18:54
DX: U07.1 COVID-19 (principal); J44.9 Chronic obstructive pulmonary disease, unspecified; Z99.81 Dependence on supplemental oxygen; Z87.891 Personal history of nicotine dependence
CPT/HCPCS: 99283; U0002